=== PATIENT | female | born 1990 | race Caucasian/White ===

== ENCOUNTER 2019-12-08 18:09 | Emergency (ER) | payer BC, SELFPAY ==
[2019-12-08 18:16] VITALS: BP 128/78; RESP 18; TEMP 37.1; O2SAT 98; BMI 26.0
[2019-12-08 20:14] VITALS: BP 120/81; PULSE 84; RESP 16; O2SAT 98
[2019-12-08 20:54] LABS: HCG Qualitative Urine. Positive (Negative)
[2019-12-08 21:13] LABS: Basophils # 0.1 10^3/uL (0.0-0.1); Basophils % 0.4 %; Eosinophils # 0.1 10^3/uL (0.0-0.8); Eosinophils % 0.5 %; Hematocrit 44.8 % (37.0-47.0); Hemoglobin 14.8 g/dL (11.5-15.3); Lymphocytes # 2.7 10^3/uL (0.8-4.8); Lymphocytes % 15.9 %; Mean Corpuscular Hemoglobin 29.2 pg (28.0-34.0); Mean Corpuscular Volume 88.4 fL (81-99); Mean Platelet Volume 12.1 fL (7.4-10.4); Monocytes # 0.6 10^3/uL (0.2-0.9); Monocytes % 3.7 %; Neutrophils # 13.6 10^3/uL (1.8-7.7); Neutrophils % 79.2 %; Nucleated Red Blood Cells % 0 %; Platelet Count 238 10^3/cmm (130-400); Red Blood Count 5.07 10^6/uL (4.1-5.3); White Blood Count 17.2 10^3/uL (4.0-10.0)
[2019-12-08 21:32] LABS: Alanine Aminotransferase 24 U/L (0-33); Albumin Level 4.3 g/dL (3.5-5.2); Alkaline Phosphatase 71 IU/L (35-105); Anion Gap 16.7 (5-19); Aspartate Amino Transferase 16 U/L (0-32); Blood Urea Nitrogen 5 mg/dL (6-20); Calcium 9.3 mg/dL (8.5-10.5); Carbon Dioxide 23 mmol/L (22-29); Chloride 101 mmol/L (98-107); Globulin 2.9 g/dL (1.3-4.6); Glucose 77 mg/dL (65-115); Osmolality Calculated 279 mOsm/kg (285-295); Potassium 3.7 mmol/L (3.5-5.1); Sodium 137 mmol/L (136-145); Total Bilirubin 0.9 mg/dL (0.15-1.2); Total Protein 7.2 g/dL (6.6-8.7)
[2019-12-08 21:39] LABS: Bilirubin Urine Neg (NEGATIVE); Blood Urine 2+ (Negative); Glucose Urine UA Norm (Normal); Ketones Urine Negative (Negative); Nitrate Urine Negative (Negative); Protein Urine Neg (Negative); Urine Appearance SL Hazy (CLEAR); Urine Color Yellow (Yellow); Urobilinogen Urine Norm (Negative); pH Urine 6 (5-7)
[2019-12-08 21:40] LABS: Add Urine Culture? Yes; Add Urine Microscopic? YES; Bacteria Urine TRACE; Leukocyte Esterase Urine Trace (Negative); Squamous Epithelial Cell Urine 0-4 (0-5); Transitional Epi Cells Urine RARE /hpf; WBC Urine 25-40 /hpf (0-5)
--- NOTE | 2019-12-08 21:51 | US_ITS ---
WS: [id number] TRANSABDOMINAL FIRST TRIMESTER ULTRASOUND HISTORY: bleeding, hx of ectopic : 3 PARA: 1 COMPARISON: None available. FINDINGS: Cervical length was not calculated. Single live intrauterine . [place] rump length measuring 1.6 cm. . Gestational sac measures 8w0d cm. cardiac tones 176 BPM. Estimated date of delivery 07/19/2020. Small subchorionic hemorrhage is seen surrounding the gestational sac. Right ovary measures 2.59 cm x 2.11 cm x 2.52 cm. Left ovary measures 3.52 cm x 2.69 cm . US/US OB <= 14 weeks fetus [id number] IMPRESSION: Interuterine at 8 weeks gestation Small area of subcutaneous chorionic hemorrhage. The appears to be viable.
--- NOTE | 2019-12-08 22:09 | W.ED.PREGNAN ---
HPI - General: Chief complaint: Vaginal Bleeding Stated complaint: vaginal bleeding/8wks preg Time Seen by Provider: 12/08/19 21:51 History of Present Illness: HPI Narrative: Patient with low back pain central with vaginal bleeding that started early this morning stopped about 1500 today patient says she feels better but still has some pain in her low back has a history ectopic denies any dysuria fever chills nausea or vomiting MD Complaint: vaginal bleeding Onset (ago): hour(s) Pain Consistency: intermittent Location: other (Low back) Severity: mild Quality: Aching Radiation: pelvis Relieving factors: none Exacerbating factors: none Vaginal discharge: none Vaginal bleeding: other (Did have bleeding today that fell about half a pad. Currently 8 weeks ) Patient : Yes Number of Weeks : 8 OB History - Current : no complications OB History - Previous Pregnancies: no complications and other (Ectopic) care: none Associated symptoms: Reports no associated symptoms; Deny abdominal pain, headache(s), nausea or vomiting Related Data: : 3 Review of Systems Const: Denies: fever, chills or body aches Eyes: Denies: change in vision or blurry vision ENMT: Denies: throat pain or nasal congestion Card: Denies: chest pain or shortness of breath on exertion Resp: Denies: shortness of breath, productive cough or non-productive cough GI: Denies: abdominal pain, nausea or vomiting : Reports: vaginal bleeding Musc: Reports: back pain; Denies: extremity pain Skin/Breast: Denies: rash Neuro: Denies: headache Psych: Denies: anxiety or depression Marcelo/Lymph: Denies: easy bruising PFS ED PFSH: Social History Smoking and tobacco status: never smoked Female Reproductive History: : 3 Physical Exam Const: COMMON NORMALS: no apparent distress, average body habitus and oriented x3 HENMT: COMMON NORMALS: normocephalic HEAD & SCALP: normal to inspection and normocephalic FACE & SINUS: normal facial exam Eye: COMMON NORMALS: conjunctivae normal GENERAL EYE: normal appearance of both eyes CONJUNCTIVA: Yes conjunctivae normal Neck/C-Spine: COMMON NORMALS: no JVD Chest: COMMONS NORMALS: inspection of chest normal Resp: COMMON NORMALS: normal respiratory effort and clear to auscultation bilaterally AUSCULTATION: clear to auscultation bilaterally Cardio: COMMON NORMALS: no JVD, regular rate and regular rhythm RATE: regular rate RHYTHM: regular rhythm GI: COMMON NORMALS: normal to inspection, nondistended, normoactive bowel sounds PALPATION: Yes tender (Suprapubic area) : COMMON NORMALS: Yes no CVA tenderness BLADDER/KIDNEY EXAM: Yes no CVA tenderness Back/Pelvis: COMMON NORMALS: no CVA tenderness Extremity: COMMON NORMALS: normal to inspection and full ROM Neuro: COMMON NORMALS: oriented x3 Procedures Perimortem Number of Weeks : 8 Course Vital Signs: Vital signs: Vital Signs Temperature 98.7 F 12/08/19 18:16 Pulse Rate 84 12/08/19 20:14 Respiratory Rate 16 12/08/19 20:14 Blood Pressure 120/81 12/08/19 20:14 Pulse Oximetry 98 12/08/19 20:14 MDM - OB/Uterine Contractions MDM Narrative: Medical decision making narrative: Ultrasound shows viable baby with heartbeat in place with a sub chorionic bleed. No evidence of ectopic no free fluid fluid be appears to be at 8 weeks Lab Data: Labs: Lab Results 12/08/19 12/08/19 12/08/19 Range/Units 19:43 19:43 20:50 WBC 17.2 H (4.0-10.0) 10^3/ uL RBC 5.07 (4.1-5.3) 10^6/u L Hgb 14.8 (11.5-15.3) g/dL Hct 44.8 (37.0-47.0) % MCV 88.4 (81-99) fL MCH 29.2 (28.0-34.0) pg MCHC 33.0 (30.0-36.0) g/dL RDW 14.0 (12.1-15.1) % Plt Count 238 (130-400) 10^3/c mm MPV 12.1 H (7.4-10.4) fL Neut % (Auto) 79.2 % Lymph % (Auto) 15.9 % [place] % (Auto) 3.7 % Eos % (Auto) 0.5 % Baso % (Auto) 0.4 % Neut # (Auto) 13.6 H (1.8-7.7) 10^3/u L Lymph # (Auto) 2.7 (0.8-4.8) 10^3/u L [place] # (Auto) 0.6 (0.2-0.9) 10^3/u L Eos # (Auto) 0.1 (0.0-0.8) 10^3/u L Baso # (Auto) 0.1 (0.0-0.1) 10^3/u L Nucleated RBC % (a uto) 0 % Nucleated RBCs # 0.0 /100WBC Sodium (136-145) mmol/L Potassium (3.5-5.1) mmol/L Chloride (98-107) mmol/L Carbon Dioxide (22-29) mmol/L Anion Gap (5-19) BUN (6-20) mg/dL Creatinine (0.5-0.9) mg/dL GFR Calculation (90-130) mL/min Glucose (65-115) mg/dL Calculated Osmolal ity (285-295) mOsm/k g Calcium (8.5-10.5) mg/dL Total Bilirubin (0.15-1.2) mg/dL AST (0-32) U/L ALT (0-33) U/L Alkaline Phosphata se (35-105) IU/L Total Protein (6.6-8.7) g/dL Albumin (3.5-5.2) g/dL Globulin (1.3-4.6) g/dL HCG, Qual Positive H (Negative) Urine Color Yellow (Yellow) Urine Appearance Sl hazy (CLEAR) Urine pH 6 (5-7) Ur Specific Gravit y 1.010 (1.005-1.030) Urine Protein Neg (Negative) Urine Glucose (UA) Norm (Normal) Urine Ketones Negative (Negative) Urine Blood 2+ H (Negative) Urine Nitrate Negative (Negative) Urine Bilirubin Neg (NEGATIVE) Urine Urobilinogen Norm (Negative) mg/dL Ur Leukocyte Katiha ase Trace H (Negative) Urine RBC 5-10 H (0-2) /hpf Urine WBC 25-40 H (0-5) /hpf Ur Squamous Epith Cells 0-4 H (0-5) Ur Transition Epit h Cell Rare /hpf Urine Bacteria Trace (NONE) 03/16/20 Range/Units 20:50 WBC (4.0-10.0) 10^3/ uL RBC (4.1-5.3) 10^6/u L Hgb (11.5-15.3) g/dL Hct (37.0-47.0) % MCV (81-99) fL MCH (28.0-34.0) pg MCHC (30.0-36.0) g/dL RDW (12.1-15.1) % Plt Count (130-400) 10^3/c mm MPV (7.4-10.4) fL Neut % (Auto) % Lymph % (Auto) % [place] % (Auto) % Eos % (Auto) % Baso % (Auto) % Neut # (Auto) (1.8-7.7) 10^3/u L Lymph # (Auto) (0.8-4.8) 10^3/u L [place] # (Auto) (0.2-0.9) 10^3/u L Eos # (Auto) (0.0-0.8) 10^3/u L Baso # (Auto) (0.0-0.1) 10^3/u L Nucleated RBC % (a uto) % Nucleated RBCs # /100WBC Sodium 137 (136-145) mmol/L Potassium 3.7 (3.5-5.1) mmol/L Chloride 101 (98-107) mmol/L Carbon Dioxide 23 (22-29) mmol/L Anion Gap 16.7 (5-19) BUN 5 L (6-20) mg/dL Creatinine 0.5 (0.5-0.9) mg/dL GFR Calculation 148.0 H (90-130) mL/min Glucose 77 (65-115) mg/dL Calculated Osmolal ity 279 L (285-295) mOsm/k g Calcium 9.3 (8.5-10.5) mg/dL Total Bilirubin 0.9 (0.15-1.2) mg/dL AST 16 (0-32) U/L ALT 24 (0-33) U/L Alkaline Phosphata se 71 (35-105) IU/L Total Protein 7.2 (6.6-8.7) g/dL Albumin 4.3 (3.5-5.2) g/dL Globulin 2.9 (1.3-4.6) g/dL HCG, Qual (Negative) Urine Color (Yellow) Urine Appearance (CLEAR) Urine pH (5-7) Ur Specific Gravit y (1.005-1.030) Urine Protein (Negative) Urine Glucose (UA) (Normal) Urine Ketones (Negative) Urine Blood (Negative) Urine Nitrate (Negative) Urine Bilirubin (NEGATIVE) Urine Urobilinogen (Negative) mg/dL Ur Leukocyte Kathia ase (Negative) Urine RBC (0-2) /hpf Urine WBC (0-5) /hpf Ur Squamous Epith Cells (0-5) Ur Transition Epit h Cell /hpf Urine Bacteria (NONE) Discharge Plan Discharge Patient Disposition: Home, Self-Care Clinical Impression: UTI (urinary tract infection) Qualifiers: Urinary tract infection type: acute cystitis Hematuria presence: with hematuria Qualified Code(s): N30.01 - Acute cystitis with hematuria Condition: Stable Prescriptions: New amoxicillin 500 mg capsule 500 mg PO TID 7 Days Qty: 21 RF: 0 prenat.vits,dilma,[id number] Tablet 1 tab PO DAILY Qty: 90 RF: 2 Discharge Orders: Discharge Order (Routine); Ordered 12/08/19 Ordered By: Tian Logan Discharge Diet: Advance as tolerated Discharge Activity: Increase activity as tolerated Patient Instructions: Urinary Tract Infection in Women (ED) Activity Restrictions/Additional Instructions: Follow-up with medical provider as directed. Take medications as prescribed. Return to the ER or your medical provider if condition worsens. Please read and understand discharge instructions. If any questions ask please. No lifting over 10 pounds to . Tablets with an OB soon. 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
[2019-12-08] MEDS: amoxicillin 500 mg Capsule PO (22:46)
[2019-12-08 22:50] VITALS: BP 128/64; PULSE 78; RESP 18; O2SAT 99
== END 2019-12-08 22:52 | disposition home or self-care (01) ==
PROVIDERS: Family Medicine; Emergency Provider Nurse Practitioner Family
DX: O23.41 Unspecified infection of urinary tract in pregnancy, first trimester (principal); O20.8 Other hemorrhage in early pregnancy; Z3A.08 8 weeks gestation of pregnancy
CPT/HCPCS: 12345; 36415; 76801; 80053; 81001; 81025; 84702; 85025; 86900; 87086; 99281; 99283; A9270

== ENCOUNTER → 2019-12-16 09:35 | Outpatient (BNVA) | payer SELFPAY | PROVIDERS: Visit Provider Nurse Practitioner Women's Health | DX: Z01.89 Encounter for other specified special examinations (principal) | CPT/HCPCS: 84315 ==

== ENCOUNTER → 2020-01-07 11:05 | Outpatient (BNVA) | payer BC, SELFPAY | PROVIDERS: Visit Provider Obstetrics & Gynecology | DX: O09.892 Supervision of other high risk pregnancies, second trimester (principal); Z34.90 Encounter for supervision of normal pregnancy, unspecified, unspecified trimester; O99.340 Other mental disorders complicating pregnancy, unspecified trimester; O09.291 Supervision of pregnancy with other poor reproductive or obstetric history, first trimester; O41.8X10 Other specified disorders of amniotic fluid and membranes, first trimester, not applicable or unspecified; O46.8X1 Other antepartum hemorrhage, first trimester; F41.9 Anxiety disorder, unspecified; F32.9 Major depressive disorder, single episode, unspecified | CPT/HCPCS: 80307; 84315; 85027; 86592; 86762; 86803; 86850; 87340; 87491; 87591; 87661; 87806 ==

== ENCOUNTER → 2020-01-12 09:20 | Outpatient (BNVA) | payer BC, SELFPAY | PROVIDERS: Visit Provider Obstetrics & Gynecology | DX: O09.291 Supervision of pregnancy with other poor reproductive or obstetric history, first trimester (principal); Z21 Asymptomatic human immunodeficiency virus [HIV] infection status | CPT/HCPCS: 84315 ==

== ENCOUNTER → 2020-01-19 09:12 | Outpatient (BNVA) | payer BC, SELFPAY | PROVIDERS: Visit Provider Obstetrics & Gynecology | DX: O09.291 Supervision of pregnancy with other poor reproductive or obstetric history, first trimester (principal); Z34.90 Encounter for supervision of normal pregnancy, unspecified, unspecified trimester; Z21 Asymptomatic human immunodeficiency virus [HIV] infection status; F41.9 Anxiety disorder, unspecified; F32.9 Major depressive disorder, single episode, unspecified; A59.01 Trichomonal vulvovaginitis | CPT/HCPCS: 84156 ==

== ENCOUNTER → 2020-03-09 08:45 | Outpatient (BNVA) | payer BC, SELFPAY | PROVIDERS: Visit Provider Obstetrics & Gynecology | DX: Z34.80 Encounter for supervision of other normal pregnancy, unspecified trimester (principal) | CPT/HCPCS: 84315; 87661 ==

== ENCOUNTER → 2020-05-03 09:16 | Outpatient (BNVA) | payer BC, SELFPAY | PROVIDERS: Visit Provider Obstetrics & Gynecology | DX: O26.899 Other specified pregnancy related conditions, unspecified trimester (principal); Z21 Asymptomatic human immunodeficiency virus [HIV] infection status; A59.01 Trichomonal vulvovaginitis; F41.9 Anxiety disorder, unspecified; F32.9 Major depressive disorder, single episode, unspecified; Z3A.00 Weeks of gestation of pregnancy not specified | CPT/HCPCS: 80053; 82570; 82950; 84156; 84315; 84550; 85027 ==

== ENCOUNTER → 2020-05-25 11:09 | Outpatient (BNVA) | payer BC, SELFPAY | PROVIDERS: Visit Provider Obstetrics & Gynecology | DX: O23.90 Unspecified genitourinary tract infection in pregnancy, unspecified trimester (principal); A59.01 Trichomonal vulvovaginitis; Z3A.00 Weeks of gestation of pregnancy not specified | CPT/HCPCS: 84315; 87661 ==

== ENCOUNTER → 2020-06-15 08:02 | Outpatient (BNVA) | payer BC, SELFPAY | PROVIDERS: Visit Provider Obstetrics & Gynecology | DX: Z34.90 Encounter for supervision of normal pregnancy, unspecified, unspecified trimester (principal) | CPT/HCPCS: 84315; 87081 ==

== ENCOUNTER → 2020-06-22 13:12 | Outpatient (BNVA) | payer BC, SELFPAY | PROVIDERS: Visit Provider Obstetrics & Gynecology | DX: O36.60X0 Maternal care for excessive fetal growth, unspecified trimester, not applicable or unspecified (principal); O13.3 Gestational [pregnancy-induced] hypertension without significant proteinuria, third trimester; A59.01 Trichomonal vulvovaginitis; Z3A.30 30 weeks gestation of pregnancy | CPT/HCPCS: 84315; 87635; 87661 ==

== ENCOUNTER 2020-06-29 07:02 | Inpatient (IN) | payer BC, SELFPAY ==
[2020-06-29] VITALS (96 sets, daily range): BP systolic 0–161; BP diastolic 0–86; PULSE 93–138; RESP 16–20; TEMP 36.2–37.2; O2SAT 97–99; BMI 37.0
[2020-06-29 07:52] LABS: Add Urine Microscopic? NO
[2020-06-29 08:01] LABS: Basophils # 0.1 10^3/uL (0.0-0.1); Basophils % 0.4 %; Eosinophils # 0.1 10^3/uL (0.0-0.8); Eosinophils % 0.6 %; Hematocrit 37.9 % (37.0-47.0); Hemoglobin 12.2 g/dL (11.5-15.3); Lymphocytes # 1.3 10^3/uL (0.8-4.8); Lymphocytes % 8.8 %; Mean Corpuscular HGB Conc 32.2 g/dL (30.0-36.0); Mean Corpuscular Hemoglobin 28.6 pg (28.0-34.0); Mean Corpuscular Volume 88.8 fL (81-99); Mean Platelet Volume 13.2 fL (7.4-10.4); Monocytes # 0.7 10^3/uL (0.2-0.9); Monocytes % 5.1 %; Neutrophils # 12.04 10^3/uL (1.8-7.7); Neutrophils % 84.7 %; Nucleated Red Blood Cells % 0 %; Platelet Count 150 10^3/cmm (130-400); Red Blood Count 4.27 10^6/uL (4.1-5.3); White Blood Count 14.2 10^3/uL (4.0-10.0)
[2020-06-29 08:09] LABS: Bilirubin Urine Neg (Negative); Blood Urine Neg (Negative); Glucose Urine UA Norm (Normal); Ketones Urine Negative (Negative); Leukocyte Esterase Urine Negative (Negative); Nitrate Urine Negative (Negative); Protein Urine Neg (Negative); Urine Appearance Clear (CLEAR); Urine Color Straw (Yellow); Urobilinogen Urine Norm (Negative)
[2020-06-29] MEDS: oxytocin 30 UNIT/500 ML BAG IV (08:18)
[2020-06-29 08:19] LABS: Alanine Aminotransferase 7 U/L (0-33); Albumin Level 3.4 g/dL (3.5-5.2); Alkaline Phosphatase 165 IU/L (35-105); Anion Gap 16.8 (5-19); Aspartate Amino Transferase 21 U/L (0-32); Blood Urea Nitrogen 5 mg/dL (6-20); Calcium 8.5 mg/dL (8.5-10.5); Carbon Dioxide 17 mmol/L (22-29); Chloride 104 mmol/L (98-107); Globulin 2.7 g/dL (1.3-4.6); Glomerular Filtration Rate 191.5 mL/min (90-130); Glucose 135 mg/dL (65-115); Osmolality Calculated 277 mOsm/kg (285-295); Potassium 3.8 mmol/L (3.5-5.1); Sodium 134 mmol/L (136-145); Total Bilirubin 0.8 mg/dL (0.15-1.2); Total Protein 6.1 g/dL (6.6-8.7); Uric Acid 4.5 mg/dL (2.4-5.7)
[2020-06-29] MEDS: dextrose 5%-lactated ringers 1,000 ML 125 ML IV (08:19)
[2020-06-29 08:20] LABS: Urine Creatinine 29 mg/dL (28-217); Urine Protein Random 10 mg/dL
[2020-06-29 08:29] LABS: UPRO/UCREAT Ratio 0.34 mg/mg CR
[2020-06-29] MEDS: magnesium sulfate premix 4 GM/100 ML PREMIX IV (10:45)
[2020-06-29] MEDS: magnesium sulfate premix 20 GM/500 ML BAG IV ×2 (11:00→19:56)
[2020-06-29] MEDS: dextrose 5%-lactated ringers 1,000 ML 59 ML IV (16:16)
--- NOTE | 2020-06-29 17:00 | ANES.PREANE2 ---
Pre-Anesthetic Assessment Pre-Anesthetic Assessment: Height/Weight: Height 1.65 m Weight 100.698 kg Temp Pulse Resp BP 97.8 F 105 H 18 144/79 06/29/20 13:00 06/29/20 16:50 06/29/20 10:45 06/29/20 16:50 Preop Diagnosis: labor Proposed Procedure: epidural Was Beta Barry taken within 24 hours: N/A Last Intake: 06:00 Social: Social History: No alcohol and No tobacco Exam: Pre-Anes Outpt Exam: alert, oriented x 3, clear to auscultation bilaterally and regular rate & rhythm Airway: Submandibular: WNL Cervical ROM: WNL MP: 2 Dentition: Full Pulmonary: Pulmonary: None reported CV/HEM: CV/HEM: HTN (with ) : : None reported Hepatic: Hepatic: None reported GI: GI: None reported Metabolic: Metabolic: None reported Musc/skel: Musc/skel: None reported Neuropsych: Neuropsych: None reported Anesthetic Plan: ASA status: 2 Anesthesia: Eval. for regional block and Regional (specify below) (epidural) Risk of > 500 ml blood loss (7ml/kg in children): No Meds/Allergies Current Medications: Current Medications Generic Name Dose Route Start Last Admin Trade Name Freq PRN Reason Stop Dose Admin Dextrose/Lactated Ringer's 1,000 mls @ 125 m ls/hr 06/29/20 07:45 06/29/20 16:16 Dextrose 5%-Lact ated Ringers IV 59 mls/hr .Q8H SALAS Administration Oxytocin 30 unit in 500 ml s @ 1 mls/hr 06/29/20 08:15 06/29/20 15:00 Pitocin IV 16 milliunit/min .Q24H SALAS 16 mls/hr Titration Protocol 1 MILLIUNIT/MIN Magnesium Sulfate 20 gm in 500 mls @ 50 mls/hr 06/29/20 10:30 06/29/20 11:00 Magnesium Sulfat e Premix IV 50 mls/hr .Q10H SALAS Administration PFSH Anesthesia PFSH: Medical History History of ectopic (~2018) Treated with methotrexate No pertinent past medical history Denies history of: hypercholesterolemia, liver, lung, kidney, thyroid problems, bleeding or clotting disorders, DVT/PE, genital herpes. PCP: None Surgical History No pertinent past surgical history Family History Grandmother Diabetes Paternal grandmother Family/Other Ovarian cancer Paternal aunt Uterine cancer Paternal aunt Mother Stroke Hypertension Family history of thyroid problem Father Heart disease Denies family history of Colon cancer Hyperlipidemia Breast cancer Social History Smoking and tobacco status: former smoker Alcohol intake: never Other details last substance use: Denies drug use Additional social history: - - Female Reproductive History: : 3 Data Anesthesia CBC & Chem 7: 06/29/20 07:25 06/29/20 07:25 Other Labs: Laboratory Results - last 48 hr 06/29/20 06/29/20 06/29/20 07:05 07:25 07:25 WBC 14.2 H RBC 4.27 Hgb 12.2 Hct 37.9 MCV 88.8 MCH 28.6 MCHC 32.2 RDW 14.0 Plt Count 150 MPV 13.2 H Neut % (Auto) 84.7 Lymph % (Auto) 8.8 [place] % (Auto) 5.1 Eos % (Auto) 0.6 Baso % (Auto) 0.4 Neut # (Auto) 12.04 H Lymph # (Auto) 1.3 [place] # (Auto) 0.7 Eos # (Auto) 0.1 Baso # (Auto) 0.1 Nucleated RBC % (auto) 0 Nucleated RBCs # 0.0 Sodium 134 L Potassium 3.8 Chloride 104 Carbon Dioxide 17 L Anion Gap 16.8 BUN 5 L Creatinine 0.4 L GFR Calculation 191.5 H Glucose 135 H Calculated Osmolality 277 L Uric Acid 4.5 Calcium 8.5 Total Bilirubin 0.8 AST 21 ALT 7 Alkaline Phosphatase 165 H Total Protein 6.1 L Albumin 3.4 L Globulin 2.7 Urine Color Straw Urine Appearance Clear Urine pH 6.0 Ur Specific [place] 1.010 Urine Protein Neg Urine Glucose (UA) Norm Urine Ketones Negative Urine Blood Neg Urine Nitrate Negative Urine Bilirubin Neg Urine Urobilinogen Norm Ur Leukocyte Esterase Negative U Random Total Protein Urine Creatinine Protein/Creatinin Ratio 06/29/20 07:25 WBC RBC Hgb Hct MCV MCH MCHC RDW Plt Count MPV Neut % (Auto) Lymph % (Auto) [place] % (Auto) Eos % (Auto) Baso % (Auto) Neut # (Auto) Lymph # (Auto) [place] # (Auto) Eos # (Auto) Baso # (Auto) Nucleated RBC % (auto) Nucleated RBCs # Sodium Potassium Chloride Carbon Dioxide Anion Gap BUN Creatinine GFR Calculation Glucose Calculated Osmolality Uric Acid Calcium Total Bilirubin AST ALT Alkaline Phosphatase Total Protein Albumin Globulin Urine Color Urine Appearance Urine pH Ur Specific [place] Urine Protein Urine Glucose (UA) Urine Ketones Urine Blood Urine Nitrate Urine Bilirubin Urine Urobilinogen Ur Leukocyte Esterase U Random Total Protein 10 Urine Creatinine 29 Protein/Creatinin Ratio 0.34 Cardiac Studies: No Data to Display
--- NOTE | 2020-06-29 17:29 | ANES.PROC ---
Anesthesia Procedures Procedure/Date: 06/29/20 Epidural: Time Out Performed: Yes Consents Signed: Procedure Consent and NPO Consent Consent: requested by attending/covering physician and from patient Lumbar Level: L3-L4 Epidural position: sitting Epidural procedure: sterile prep of area (betadine), 1% lidocaine to numb the area (3ml), 18 g needle, neg for paresthesia, test dose given, 1.5% xylocaine 1:200k epi (3ml), 0.2% Ropivacaine bolus ml (5ml), placed PCEA, no systemic response, sterile dressing applied, L.U.D. no apparent complications and 0.2% Ropiavacaine @ mls/hr (10ml/hr)
--- NOTE | 2020-06-29 17:45 | PC.NURSE ---
THIS [employer]ANQUET SERVER ON CALL ATTEMPTED TO DRAW MAG LEVEL PER VENOUS TICK LEFT AC SPACE WITHOUT SUCCESS AT 1630 CALLED LAB AND THEY CAME U WHEN PT SITTING UP FOR EPIDURAL SO THIS [employer] SERVER ON CALL CALLED THEM BACK AT 1725 AND AT 1740 THEY CAME UP AND DRAW HER BLOOD. DR. HOSKINS AWARE OF LATE BLOOD DRAW.
[2020-06-29 18:12] LABS: Magnesium Level (OB Only) 3.9 mg/dL (5.0-7.5)
[2020-06-29] MEDS: miSOPROStol 200 mcg Tablet 800 MCG PR (21:16)
[2020-06-29] MEDS: dextrose 5%-lactated ringers 1,000 ML 87 ML IV (21:45)
--- NOTE | 2020-06-29 21:46 | P.PCNOB_ITS ---
Delivery Note: Date of delivery: June 29, 2020 Pre-delivery diagnoses: 1. Preeclampsia in third trimester 2. at 37-0/7 weeks gestation 3. Mental disorder (depression) complicating in third trimester Post-delivery diagnoses: 1. Preeclampsia - delivered 2. at 37-0/7 weeks gestation 3. Mental disorder (depression) complicating - delivered 4. Viable male . Procedure: Spontaneous vaginal delivery Op report anesthesia: Epidural Delivering Physician: Boogie Barker MD Estimated blood loss (mL): 400 Pre-Delivery Course: Patient is a 29-year-old female 3, para 1-0-1-1 with an LMP of 10/14/2019 and an EDC of 07/20/2020 based on LMP and consistent with 8-week ultrasound, which placed her at 37-0/7 weeks gestation at the time of admission. At her last visit in the office on 06/28/2020, patient had been noted is having mildly elevated blood pressures at home and at the office and was diagnosed with gestational hypertension. As a result, she was scheduled to be induced at 37 weeks gestation. She presented to labor and delivery at 06:55 on 06/29/2020 for induction of labor. She was evaluated that morning and ruled in for preeclampsia with mildly elevated blood pressures and a protein creatinine ratio of 0.34. She was started on magnesium sulfate for seizure prophylaxis. She was noted to have a favorable cervix and was started on Pitocin for induction of labor. She became more uncomfortable during the day and had epidural placed. She made slow change during the day and at 14:30, she had artificial rupture membranes performed with clear fluid present. She was still 60% effaced and was 6 cm dilated. She continued to make very slow cervical change and at 19:37 was still 7 cm dilated. Following this, however, she started progressing quickly and was found to be completely dilated at 20:53. Delivery: She started pushing at 21:03 and delivered at 21:08 as a spontaneous vaginal delivery of an occiput anterior male infant over an intact perineum under epidural anesthesia. Following delivery of the baby's head, no nuchal cords were noted. Rest of the delivered atraumatically with the left shoulder anterior. Baby was then placed on the mother's abdomen where it was left in the care of the waiting nurses. It was spontaneously crying. Cord was clamped and was then cut by the reported father of the baby. Cord blood was obtained. Pitocin bolus was started. Placenta delivered intact by simple expression at 21:14. The cervix and vagina were palpated and noted to be intact. The labia and perineum were inspected and noted to be intact except for superficial bilateral periurethral lacerations which required no repair and a second-degree midline perineal laceration which was repaired with 3-0 Vicryl suture. Due to being on Pitocin for greater than 12 hours and with her being on magnesium and being continued on magnesium afterwards, decision was made to give 800 mcg of Cytotec rectally for bleeding prophylaxis. FINDINGS: 1. Viable male weighing 8 lbs 2 oz (3610 g) with a length of 21 inches and Apgars of 9 at 1 minute and 9 at 5 minutes. 2. Three-vessel cord with no loops of nuchal cord noted. 3. Normal-appearing placenta with an eccentric cord insertion. Post-Delivery Status: Mother and were left to recover in satisfactory condition. Patient will be continued on magnesium sulfate for seizure prophylaxis for at least 24 hours . 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
[2020-06-29 23:10] LABS: Magnesium Level (OB Only) 4.3 mg/dL (5.0-7.5)
[2020-06-30] VITALS (27 sets, daily range): BP systolic 130–159; BP diastolic 65–91; PULSE 81–117; RESP 16–18; TEMP 36.5–37.1; O2SAT 95–99
--- NOTE | 2020-06-30 02:45 | ANE.PACU2 ---
Inpatient post-anesthesia follow up: Airway intact: Yes Vital signs: Temperature 98.7 F Pulse Rate 111 Respiratory Rate 17 Blood Pressure 144/86 Pulse Oximetry 99 Oxygen Delivery Me thod Room Air Oxygen Flow Rate Fraction of Inspir ed Oxygen Hydration adequate: Yes Nausea and vomiting: No Pain level: 1 Mental status: Baseline Additional Comments: no signs of infection at epidural site, no headaches, no weakness/numbness in legs.Gonsales still in place, not up and walking yet
--- NOTE | 2020-06-30 03:18 | PC.NURSE ---
PT TRANSFERRED VIA BED TO ROOM AT 0230.
[2020-06-30] MEDS: magnesium sulfate premix 20 GM/500 ML BAG IV ×2 (05:13→13:04)
[2020-06-30 05:50] LABS: Magnesium Level (OB Only) 4.6 mg/dL (5.0-7.5)
--- NOTE | 2020-06-30 07:48 | PM.PN ---
Subjective Subjective: Interval history: Patient reports being tired. States did not sleep well last night. She denied shortness of breath or chest pains. She denied lightheadedness or dizziness with laying in bed. She states pain has been well controlled. Vitals/I&O/Wt Last Vital Signs Temp 98.7 F 06/30/20 05:30 Pulse 111 H 06/30/20 05:30 Resp 17 06/30/20 05:30 BP 144/86 06/30/20 05:30 Pulse Ox 99 06/30/20 05:30 06/29/20 06/30/20 06/30/20 22:59 06:59 14:59 Intake Total 2237.300 / 2645.200 1036.501 / 3681.701 Output Total 1127 / 1927 3135 / 5062 500 / 500 Balance 1110.300 / 718.200 -2098.499 / -1380.299 -500 / -500 Weight last 48 hrs Weight 222 lb Weight 222 lb 7.831 oz Physical Exam Const: COMMON NORMALS: no acute distress, average body habitus, alert and well nourished GENERAL APPEARANCE: well developed ORIENTATION/CONSCIOUSNESS: Yes oriented to person, Yes oriented to place and Yes oriented to time Resp: COMMON NORMALS: normal respiratory effort and clear to auscultation bilaterally AUSCULTATION: clear to auscultation bilaterally Cardio: COMMON NORMALS: regular rate, regular rhythm, No gallops present (Cardio) and No rub (Cardio) RATE: regular rate RHYTHM: regular rhythm GI: COMMON NORMALS: Soft to palpation, non-tender, No hepatosplenomegaly present and no masses (Except for , nontender uterus.) AUSCULTATION: Yes normoactive bowel sounds PALPATION: Yes Soft to palpation, Yes No hepatosplenomegaly present and No Hernia present : EXTERNAL FEMALE EXAM: No Hernia present Neuro: SENSORIUM/ORIENTATION: Yes alert, Yes oriented to person, Yes oriented to place and Yes oriented to time Psych: COMMON NORMALS: normal affect MOOD & AFFECT: Yes euthymic mood Urinary Catheter Management^: Gonsales: Cath Placed During This Visit: yes, but has since been removed by the nurse Reason for Continuing Indwelling Catheter: Accurate Measurement of Urinary Output in Critically Ill Patients Urinary Catheter Date of Insertion: 06/29/20 Urinary Catheter Time of Insertion: 21:54 Date Urinary Catheter Removed: 06/29/20 Time Urinary Catheter Discontinued: 21:02 Gonsales Latex Free: Cath Placed During This Visit: no Reason for Continuing Indwelling Catheter: Accurate Measurement of Urinary Output in Critically Ill Patients Data : 06/29/20 07:25 06/29/20 07:25 A&P Assessment and plan (1) Pre-eclampsia, mild, delivered: day 1, less than 12 hours since delivery. Patient has had mildly elevated blood pressures, none of them in the severe range. Blood pressure medications have not been needed at this time. Patient has already been diuresing with 200 mL or more urine output every hour. Assuming patient continues to diurese well, plan will be to discontinue magnesium at 24 hours postdelivery. Gonsales catheter will be discontinued after that and activities increased. We will keep her n.p.o. except for ice chips and sips until magnesium has been discontinued. Status: Acute Attestations Medical Necessity Statement*: Patient with preeclampsia on IV magnesium and will be on it for at least 24 hours postdelivery. 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
--- NOTE | 2020-06-30 08:59 | PC.NURSE ---
Patient's notified of visitor policy, that if he leaves at this time he will be unable to come back. , Jose G, stated understanding that he would not be allowed back in the unit if he left.
[2020-06-30] MEDS: sertraline 50 mg Tablet PO (09:08)
[2020-06-30 11:15] LABS: Hematocrit 38.3 % (37.0-47.0); Hemoglobin 12.3 g/dL (11.5-15.3); Mean Corpuscular HGB Conc 32.1 g/dL (30.0-36.0); Mean Corpuscular Hemoglobin 28.7 pg (28.0-34.0); Mean Corpuscular Volume 89.5 fL (81-99); Mean Platelet Volume 12.8 fL (7.4-10.4); Platelet Count 154 10^3/cmm (130-400); Red Blood Count 4.28 10^6/uL (4.1-5.3); Red Cell Distribution Width 14.2 % (12.1-15.1); White Blood Count 15.8 10^3/uL (4.0-10.0)
[2020-06-30 11:57] LABS: Magnesium Level (OB Only) 5.5 mg/dL (5.0-7.5)
[2020-06-30] MEDS: dextrose 5%-lactated ringers 1,000 ML 62.5 ML IV (12:29)
[2020-06-30 17:47] LABS: Magnesium Level (OB Only) 5.9 mg/dL (5.0-7.5)
[2020-07-01] VITALS (8 sets, daily range): BP systolic 139–167; BP diastolic 79–97; PULSE 70–88; RESP 16–18; TEMP 36.6–36.9; O2SAT 95–97
--- NOTE | 2020-07-01 07:18 | ANE.PACU2 ---
Inpatient post-anesthesia follow up: Airway intact: Yes Vital signs: Temperature 98.3 F Pulse Rate 74 Respiratory Rate 17 Blood Pressure 139/87 Pulse Oximetry 97 Oxygen Delivery Me thod Room Air Oxygen Flow Rate Fraction of Inspir ed Oxygen Hydration adequate: Yes Nausea and vomiting: No Pain level: 2 Mental status: Baseline Additional Comments: Gonsales still in place and not up and walking yet d/t magnesium. No subjective weakness/numbness in Lower extremities. Patient will be up and walking today.
[2020-07-01] MEDS: ibuprofen 800 mg tablet PO ×2 (09:53→14:07)
[2020-07-01] MEDS: sertraline 50 mg Tablet PO (09:53)
[2020-07-01] MEDS: docusate sodium 100 mg Capsule PO (09:53)
--- NOTE | 2020-07-01 17:48 | PM.OBGYDC ---
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 She was admitted to the hospital for induction of labor with gestational hypertension. She was evaluated for possible preeclampsia at admission and ruled in for preeclampsia due to a protein creatinine ratio of 0.34 in addition to the elevated blood pressures. As a result she was started on magnesium sulfate for seizure prophylaxis. She had a favorable cervix and was started on Pitocin for induction. She became uncomfortable enough following this at that she had epidural placed. By 14:30, she had artificial rupture membranes and was noted to be 6 cm dilated and 60% effaced. She made slow cervical change but progressed to complete dilation by 20:53. She started pushing at 21:03 and delivered at 21:08 on 06/29/2020 as a spontaneous vaginal delivery of an occiput anterior male over an intact perineum. Baby weighed 8 pounds 2 ounces (3610 g) with a length of 21 inches and Apgars of 9 at 1 minute and 9 at 5 minutes. She had a second-degree perineal laceration which was repaired with 3-0 Vicryl suture. Patient was bleeding a little heavier than typically seen. Because of the prolonged induction with Pitocin and being on magnesium, she was prophylactically treated with Cytotec 800 mcg rectally. Patient was continued on magnesium following delivery for seizure prophylaxis. Day 1 Patient was reporting doing well overall. She denied shortness of breath or chest pains. She denied lightheadedness or dizziness with laying in bed. She reported that her pain had been well controlled. She did have elevated blood pressures, but not high enough to require medications. She was continued on magnesium sulfate until that evening and magnesium was stopped at the 24-hour post delivery time. She had been diuresing well through the day. Day 2 Patient reports feeling much better today. Reports tolerating a regular diet without nausea or vomiting. Denies lightheadedness or dizziness with sitting up in bed. Denies any shortness of breath or chest pains. Denies headaches. Reports bleeding has slowed. She is requesting to go home today. Physical Exam: See below Plan Discontinue Gonsales catheter. Patient may increase activities. Monitor blood pressure through the day with increased activities. May need to start medications depending upon blood pressure readings. If does well, plan to discharge to home in the evening. Discharge instructions were discussed with the patient in anticipation of being discharged. Blood pressures have been monitored through the day with the increase activity. They are high enough that I would recommend starting medication (labetalol 100 mg twice a day). Patient to follow-up in the office in 1 week for blood pressure check. Information Peripartum Data: Delivery Method: Vaginal Physical Exam Const: COMMON NORMALS: no acute distress, average body habitus, alert and well nourished GENERAL APPEARANCE: well developed ORIENTATION/CONSCIOUSNESS: Yes oriented to person, Yes oriented to place and Yes oriented to time Resp: COMMON NORMALS: normal respiratory effort and clear to auscultation bilaterally AUSCULTATION: clear to auscultation bilaterally Cardio: COMMON NORMALS: regular rate, regular rhythm, No gallops present (Cardio) and No rub (Cardio) RATE: regular rate RHYTHM: regular rhythm GI: COMMON NORMALS: Soft to palpation, non-tender, No hepatosplenomegaly present and no masses (Except for nontender uterus) AUSCULTATION: Yes normoactive bowel sounds PALPATION: Yes Soft to palpation, Yes No hepatosplenomegaly present and No Hernia present : EXTERNAL FEMALE EXAM: No Hernia present Extremity: COMMON NORMALS: no calf tenderness NARRATIVE EXTREMITY EXAM: 1+ lower extremity edema bilaterally Neuro: SENSORIUM/ORIENTATION: Yes alert, Yes oriented to person, Yes oriented to place and Yes oriented to time Psych: COMMON NORMALS: normal affect MOOD & AFFECT: Yes euthymic mood Urinary Catheter Management^: Gonsales: Cath Placed During This Visit: yes, but has since been removed by the nurse Reason for Continuing Indwelling Catheter: Accurate Measurement of Urinary Output in Critically Ill Patients Urinary Catheter Date of Insertion: 06/29/20 Urinary Catheter Time of Insertion: 21:54 Date Urinary Catheter Removed: 06/29/20 Time Urinary Catheter Discontinued: 21:02 Gonsales Latex Free: Cath Placed During This Visit: yes, but has since been removed by the nurse Reason for Continuing Indwelling Catheter: Decision to DC Catheter Date Urinary Catheter Removed: 07/01/20 Time Urinary Catheter Discontinued: 08:04 Discharge Data Vitals: Last Vital Signs Temp 98.4 F 07/01/20 16:46 Pulse 84 07/01/20 16:46 Resp 16 07/01/20 16:46 BP 154/90 07/01/20 16:46 Pulse Ox 97 07/01/20 16:46 Discharge Plan Discharge Patient Disposition: Home Condition: Stable Prescriptions: New ibuprofen 800 mg Tablet 800 mg PO TID PRN (Reason: pain) Qty: 30 RF: 0 labetalol 100 mg tablet 100 mg PO BID 30 Days Qty: 60 RF: 1 Continued aspirin 81 mg tablet,delayed release (DR/EC) 81 mg PO DAILY Qty: 90 RF: 2 sertraline [Zoloft] 50 mg tablet 50 mg PO DAILY Qty: 30 RF: 1 prenat.vits,dilma,afk-[id number] Tablet 1 tab PO DAILY Qty: 90 RF: 2 Discharge Orders: Discharge Order (Routine); Ordered 07/01/20 Ordered By: Boogie Barker Referrals: Lowell Hopkins MD [Physician] - 08/23/20 2:00 pm (* Your follow up appointment with Dr. Ortega is July at 2:00pm. ) Nadege Tian APN, WHNP [Nurse Practitioner] - 1 week (Blood pressure check. 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
== END 2020-07-01 19:40 | disposition home or self-care (01) | DRG 807 ==
PROVIDERS: Obstetrics & Gynecology; Admitting Provider Obstetrics & Gynecology; Visit Provider Obstetrics & Gynecology
DX: O14.04 Mild to moderate pre-eclampsia, complicating childbirth (principal); Z37.0 Single live birth; Z3A.37 37 weeks gestation of pregnancy; O99.344 Other mental disorders complicating childbirth; F32.9 Major depressive disorder, single episode, unspecified; F41.9 Anxiety disorder, unspecified; O13.4 Gestational [pregnancy-induced] hypertension without significant proteinuria, complicating childbirth; O70.1 Second degree perineal laceration during delivery; Z86.19 Personal history of other infectious and parasitic diseases; Z87.891 Personal history of nicotine dependence; Z79.82 Long term (current) use of aspirin
CPT/HCPCS: 12345; 36415; 51702; 59025; 59409; 80053; 81003; 82570; 83735; 84156; 84550; 85025; 85027; 98960; 99211; J2795; J3475

== ENCOUNTER → 2020-08-23 14:42 | Outpatient (BNVA) | payer BC, SELFPAY | PROVIDERS: Visit Provider Obstetrics & Gynecology | DX: Z72.51 High risk heterosexual behavior (principal) | CPT/HCPCS: 81025 ==

== ENCOUNTER → 2020-08-25 08:39 | Outpatient (BNVA) | payer BC, SELFPAY | PROVIDERS: Visit Provider Obstetrics & Gynecology | DX: Z30.9 Encounter for contraceptive management, unspecified (principal) | CPT/HCPCS: 81025 ==

== ENCOUNTER → 2021-11-12 10:13 | Outpatient (BNVA) | payer OTHER, BC, SELFPAY | PROVIDERS: Visit Provider Registered Nurse Neonatal Intensive Care | DX: J02.9 Acute pharyngitis, unspecified (principal) | CPT/HCPCS: 87880 ==

== ENCOUNTER → 2022-10-04 14:33 | Outpatient (BNVA) | payer OTHER, BC, SELFPAY | PROVIDERS: Visit Provider Nurse Practitioner Women's Health | DX: Z01.419 Encounter for gynecological examination (general) (routine) without abnormal findings (principal) | CPT/HCPCS: 87624 ==

== ENCOUNTER 2024-04-24 20:31 | Observation (INO) | payer OTHER, SELFPAY ==
[2024-04-24 20:36] VITALS: BP 149/89; PULSE 115; RESP 20; TEMP 37.1; O2SAT 96; BMI 33.4
[2024-04-24 20:40] VITALS: BP 161/113; PULSE 99; RESP 16; O2SAT 96
--- NOTE | 2024-04-24 22:27 | USR_ITS ---
PROCEDURE INFORMATION: Exam: US , Transvaginal Exam date and time: 04/24/2024 11:02 PM Age: 33 years old Clinical indication: Lmp or gestational age (in weeks): 6w 4d by lmp; Other: Left-sided ectopic; complicated by abdominal or pelvic pain; Left lower quadrant; First trimester (<14 weeks 0 days); Gestational age or lmp: 6w 4 days by lmp; ; Prior surgery; Surgery date: 6+ months; Surgery type: Prior ectopic . Patient HX: Patient is g4-p2-a1-l2 with prior ectopic ; Additional info: Left pelvic pain/hx of ectopic LABS AND CLINICAL REPORTS: Choriogonadotropin in serum (Serum HCG): 2311 mIU/mL Last menstrual period start date: 03/09/2024 Gestational age (Established): 6 w 4 d Estimated due date (Established): 12/14/2024 TECHNIQUE: Imaging protocol: Real-time transvaginal obstetrical ultrasound of the maternal pelvis with image documentation. Transvaginal imaging was used for better evaluation of the fetus, adnexa, and/or cervix. COMPARISON: US OB BPP wo [facility] 06/28/2020 9:49 AM FINDINGS: Gestation: The gestational sac and yolk sac are seen within a lesion in the left adnexa. No pole is seen. BIOMETRY: Mean sac diameter: 0.58 cm. EGA (MSD) is 5 w 2 d MATERNAL: Uterus: Uterus measures 8.94 cm x 5.81 cm x 4.76 cm. Right ovary/adnexa: Right ovary measures 4 cm x 2.7 cm x 4.2 cm. Right ovarian volume is 24 mL. Left ovary/adnexa: Left ovary measures 3 cm x 2.1 cm x 4 cm. Left ovarian volume is 13.5 mL. Intraperitoneal space: Moderate free fluid within the cul-de-sac. US/US OB transvaginal [id number] IMPRESSION: The gestational sac and yolk sac are seen within a lesion in the left adnexa compatible with ectopic . No pole is seen. COMMENT: THIS REPORT CONTAINS FINDINGS THAT MAY BE CRITICAL TO PATIENT CARE. The exam findings were verbally communicated by me to IK MARIANO via telephone conference at 12:07 AM CDT on 04/25/2024. The findings were acknowledged and understood.
[2024-04-24 22:31] LABS: Basophils # 0.1 10^3/uL (0.0-0.1); Basophils % 0.8 %; Eosinophils # 0.2 10^3/uL (0.0-0.8); Hematocrit 46.8 % (36-47); Lymphocytes # 2.3 10^3/uL (0.8-4.8); Lymphocytes % 15.5 %; Mean Corpuscular HGB Conc 32.5 g/dL (30-55); Mean Corpuscular Hemoglobin 29.2 pg (27-33); Mean Platelet Volume 12.7 fL (7.4-10.4); Monocytes # 0.7 10^3/uL (0.2-0.9); Monocytes % 4.5 %; Neutrophils # 11.29 10^3/uL (1.8-7.7); Neutrophils % 77.9 %; Nucleated Red Blood Cells % 0 %; Platelet Count 197 10^3/cmm (157-399); Red Cell Distribution Width 13.8 % (12.1-15.1); White Blood Count 14.49 10^3/uL (3.29-11.43)
[2024-04-24 22:35] VITALS: BP 129/103
[2024-04-24 22:45] VITALS: RESP 16; O2SAT 95
[2024-04-24] MEDS: ondansetron 2 mg/ML SDV 2 mL 4 MG IVP (22:45)
[2024-04-24] MEDS: morphine 4 mg/mL SDV 1 mL IVP (22:45)
[2024-04-24] MEDS: sodium chloride 0.9% 1,000 ML 999 ML IV (22:45)
[2024-04-24 23:29] VITALS: BP 136/115
--- NOTE | 2024-04-24 23:42 | ED_ITS ---
Documented by User: ALEJANDRO Odom 04/25/24 00:54 HPI - 2 General: Chief complaint: OB/Uterine Contractions Stated complaint: 7 weeks preg, cramps Time Seen by Provider: 04/24/24 21:46 Source: patient Mode of arrival: ambulatory Limitations: no limitations History of Present Illness: Patient is a 33-year-old female with history of ectopic presents to the emergency department complaining of left lower quadrant abdominal pain onset past couple days. Patient states she is 7 weeks based off of last normal menstrual period. She also is noting some vaginal bleeding, has been intermittent though states that it was ramping up while in the waiting room. She arrives slightly tachycardic but rest of her vitals unremarkable. Denies any episodes of syncope or lightheadedness. States this feels identical to her prior ectopic , which was in 2019. No other symptoms to report at this time, states the pain is a 7/10 and does radiate to her left lower back. No urinary symptoms or changes in bowel. MD Complaint: abdominal pain and vaginal bleeding Onset (ago): day(s) Pain Consistency: constant Location: pelvis Severity: severe Vaginal bleeding: heavy Patient : Yes OB History - Previous Pregnancies: other (Ectopic) Associated symptoms: Reports abdominal pain; Deny dysuria, headache(s), nausea or vomiting Related Data: : 4 Review of Systems 2 General: Reports: 10 or more systems reviewed and unremarkable except in HPI and below Const: Denies: fever(s), chills, change in appetite, change in weight or diaphoresis ENMT: Denies: throat pain or hoarseness Card: Denies: chest pain, palpitations or lightheadedness Resp: Denies: dyspnea, productive cough or wheezing GI: Reports: abdominal pain; Denies: nausea, vomiting, diarrhea, constipation, bloating, change in stool character or hematochezia : Reports: vaginal bleeding; Denies: flank pain, difficulty voiding, dysuria, urinary frequency or urinary urgency Musc: Reports: back pain; Denies: neck pain Skin/Breast: Denies: rash or new lesions Neuro: Denies: headache(s) or dizziness PFSH ED 2 PFSH: Medical History Women's annual routine gynecological examination No pertinent past medical history Denies history of: hypercholesterolemia, liver, lung, kidney, thyroid problems, bleeding or clotting disorders, DVT/PE, genital herpes. PCP: None History of ectopic (~2019) Treated with methotrexate Surgical History No pertinent past surgical history Family History Grandmother Diabetes Paternal grandmother Family/Other Ovarian cancer Paternal aunt Uterine cancer Paternal aunt Mother Stroke Hypertension Family history of thyroid problem Father Heart disease Denies family history of Colon cancer Hyperlipidemia Breast cancer Social History Smoking and tobacco/nicotine status: former use of tobacco/nicotine Alcohol intake: never Substance/Drug Use: never Additional social history: - - Female Reproductive History: : 4 Physical Exam 2 Const: COMMON NORMALS: average body habitus, patient oriented x3, no limitations, healthy appearing, alert and well nourished GENERAL APPEARANCE: cooperative, comfortable and anxious ORIENTATION/CONSCIOUSNESS: Yes awake HENMT: COMMON NORMALS: normocephalic, atraumatic, hearing grossly normal bilaterally, external ears normal, Normal external nose present, Normal nasal mucous membranes and turbinates present and moist oral mucous membranes HEAD & SCALP: normocephalic and atraumatic NOSE: Normal external nose present and Normal nasal mucous membranes and turbinates present EXTERNAL EAR: Yes external ears normal Eye: COMMON NORMALS: Equal, round and reactive pupils present, EOMs intact bilaterally, conjunctivae normal and normal visual cordero by confrontation C ONJUNCTIVA: Yes conjunctivae normal PUPIL: Yes Equal, round and reactive pupils present Neck/C-Spine: COMMON NORMALS: full ROM, supple, no meningeal signs and no JVD Resp: COMMON NORMALS: normal respiratory effort, No retractions, No use of accessory muscles and clear to auscultation bilaterally AUSCULTATION: clear to auscultation bilaterally, no crackles, no rales, no rhonchi and no wheezes Cardio: COMMON NORMALS: no JVD, regular rate, regular rhythm, S1 normal heart sound present, S2 normal heart sound present, No gallops present (Cardio), No clicks present (Cardio), No murmurs present (Cardio), No rub (Cardio) and Peripheral pulses 2+ throughout RATE: regular rate RHYTHM: regular rhythm HEART SOUNDS: S1 normal heart sound present and S2 normal heart sound present PERIPHERAL PULSES: Peripheral pulses 2+ throughout GI: COMMON NORMALS: Normal to inspection, nondistended, normoactive bowel sounds present, Soft to palpation, non-tender, No hepatosplenomegaly present and no masses AUSCULTATION: Yes normoactive bowel sounds PALPATION: Yes Soft to palpation, No Guarding due to palpation present (GI), No Rigid due to palpation and Yes No hepatosplenomegaly present RECTAL EXAM: deferred O THER: No significant reproducible tenderness to palpation on exam : COMMON NORMALS: Yes no CVA tenderness BLADDER/KIDNEY EXAM: Yes no CVA tenderness Back/Pelvis: COMMON NORMALS: no CVA tenderness Extremity: COMMON NORMALS: normal to inspection and full ROM Neuro: COMMON NORMALS: patient oriented x3, moves all extremities, no focal motor deficits and no sensory deficits noted SENSORIUM/ORIENTATION: Yes alert MENINGEAL SIGNS: Yes no meningeal signs Psych: COMMON NORMALS: mental status grossly normal, cooperative and speech normal SPEECH: Yes normal speech Skin: COMMON NORMALS: no rashes or lesions noted GENERAL SKIN EXAM: no rashes or lesions noted Course 2 Vital Signs: Vital signs: Vital Signs Temperature 98.1 F 04/25/24 03:45 Pulse Rate 90 04/25/24 05:45 Respiratory Rate 18 04/25/24 05:45 Blood Pressure 114/71 04/25/24 05:45 Pulse Oximetry 94 04/25/24 05:45 Oxygen Delivery Me thod Room Air 04/25/24 05:45 Oxygen Flow Rate 6 04/25/24 02:05 MDM - OB/Uterine Contractions Medical Decision Making Patient presented to the emergency department for evaluation of left lower quadrant pain, history of ectopic . 7 weeks based on last normal menstrual period. She was anxious on exam and tearful, however examination ultimately unremarkable. Her CBC revealed slight bump in white count, though ultimately was unremarkable. Her serum hCG just over 1999. Blood type a positive. History of ectopic previously in 1999, though states that she was medically treated at that time and did not require surgery. Ultrasound transvaginally did show an ectopic to the left adnexa. Spoke with Dr. Brody Ruiz, DEMAND PLANNER, who states he will see the patient in the OR later tonight. He recommends n.p.o. at this time and continuing on IV fluids as well as pain control. press shop supervisor called to get OR surgery team together. Discussed with patient plan for surgery, she agrees at this time and all other questions and concerns are addressed. This case was discussed with ED physician, Dr. Burch, who put in admit orders at this time. Lab Data 04/25/24 05:40 Radiology Impressions Transvaginal US 04/24/24 22:27 IMPRESSION: The gestational sac and yolk sac are seen within a lesion in the left adnexa compatible with ectopic . No pole is seen. COMMENT: THIS REPORT CONTAINS FINDINGS THAT MAY BE CRITICAL TO PATIENT CARE. The exam findings were verbally communicated by me to KI MARIANO via telephone conference at 12:07 AM CDT on 04/25/2024. The findings were acknowledged and understood. Laboratory Results WBC 14.49 10^3/uL (3.29-11.43) H 04/24/24 22:22 RBC 5.20 10^6/uL (3.85-5.65) 04/24/24 22:22 Hgb 15.20 g/dL (11.27-16.99) 04/24/24 22:22 Hct 46.8 % (36-47) 04/24/24 22:22 MCV 90.0 fl (85-98) 04/24/24 22:22 MCH 29.2 pg (27-33) 04/24/24 22:22 MCHC 32.5 g/dL (30-55) 04/24/24 22:22 RDW 13.8 % (12.1-15.1) 04/24/24 22:22 Plt Count 197 10^3/cmm (157-399) 04/24/24 22:22 MPV 12.7 fL (7.4-10.4) H 04/24/24 22:22 Neut % (Auto) 77.9 % 04/24/24 22:22 Lymph % (Auto) 15.5 % 04/24/24 22:22 Beauregard % (Auto) 4.5 % 04/24/24 22:22 Eos % (Auto) 1.0 % 04/24/24 22:22 Baso % (Auto) 0.8 % 04/24/24 22:22 Neut # (Auto) 11.29 10^3/uL (1.8-7.7) H 04/24/24 22:22 Lymph # (Auto) 2.3 10^3/uL (0.8-4.8) 04/24/24 22:22 Beauregard # (Auto) 0.7 10^3/uL (0.2-0.9) 04/24/24 22:22 Eos # (Auto) 0.2 10^3/uL (0.0-0.8) 04/24/24 22:22 Baso # (Auto) 0.1 10^3/uL (0.0-0.1) 04/24/24 22:22 Nucleated RBC % (auto) 0 % 04/24/24 22:22 Nucleated RBCs # 0.0 /100WBC 04/24/24 22:22 Ser , Semi-Qnt 2311.00 mIU/mL 04/24/24 22:22 Blood Type A Positive 04/24/24 23:08 Rho(D) Type Rh positive 04/24/24 23:08 All radiology interpretation(s) finalized by discharge Discharge Plan Discharge Patient Disposition: Admitted As Inpatient Admit Provider: Brody Milton Clinical Impression: Ectopic Condition: Stable Coding Level of Care Code ED Shearing Machine Tender for Chg Fwd Documented by User: Enio Miller DO 04/25/24 06:51 HPI - 2 General: Chief complaint: OB/Uterine Contractions Stated complaint: 7 weeks preg, cramps Time Seen by Provider: 04/24/24 21:46 PFSH ED 2 PFSH: Medical History Women's annual routine gynecological examination No pertinent past medical history Denies history of: hypercholesterolemia, liver, lung, kidney, thyroid problems, bleeding or clotting disorders, DVT/PE, genital herpes. PCP: None History of ectopic (~2018) Treated with methotrexate Surgical History No pertinent past surgical history Family History Grandmother Diabetes Paternal grandmother Family/Other Ovarian cancer Paternal aunt Uterine cancer Paternal aunt Mother Stroke Hypertension Family history of thyroid problem Father Heart disease Denies family history of Colon cancer Hyperlipidemia Breast cancer Social History Smoking and tobacco/nicotine status: former use of tobacco/nicotine Alcohol intake: never Substance/Drug Use: never Additional social history: - - Course 2 Vital Signs: Vital signs: Vital Signs Temperature 98.1 F 04/25/24 03:45 Pulse Rate 90 04/25/24 05:45 Respiratory Rate 18 04/25/24 05:45 Blood Pressure 114/71 04/25/24 05:45 Pulse Oximetry 94 04/25/24 05:45 Oxygen Delivery Me thod Room Air 04/25/24 05:45 Oxygen Flow Rate 6 04/25/24 02:05 MDM - OB/Uterine Contractions Medical Decision Making Patient presented to the emergency department for evaluation of left lower quadrant pain, history of ectopic . 7 weeks based on last normal menstrual period. She was anxious on exam and tearful, however examination ultimately unremarkable. Her CBC revealed slight bump in white count, though ultimately was unremarkable. Her serum hCG just over 1999. Blood type a positive. History of ectopic previously in 1999, though states that she was medically treated at that time and did not require surgery. Ultrasound transvaginally did show an ectopic to the left adnexa. Spoke with Dr. Brody Ruiz, DEMAND PLANNER, who states he will see the patient in the OR later tonight. He recommends n.p.o. at this time and continuing on IV fluids as well as pain control. press shop supervisor called to get OR surgery team together. Discussed with patient plan for surgery, she agrees at this time and all other questions and concerns are addressed. This case was discussed with ED physician, Dr. Burch, who put in admit orders at this time. Chart reviewed Lab Data 04/25/24 05:40 Radiology Impressions Transvaginal US 04/24/24 22:27 IMPRESSION: The gestational sac and yolk sac are seen within a lesion in the left adnexa compatible with ectopic . No pole is seen. COMMENT: THIS REPORT CONTAINS FINDINGS THAT MAY BE CRITICAL TO PATIENT CARE. The exam findings were verbally communicated by me to KI MARIANO via telephone conference at 12:07 AM CDT on 04/25/2024. The findings were acknowledged and understood. Laboratory Results WBC 14.49 10^3/uL (3.29-11.43) H 04/24/24 22:22 RBC 5.20 10^6/uL (3.85-5.65) 04/24/24 22:22 Hgb 15.20 g/dL (11.27-16.99) 04/24/24 22:22 Hct 46.8 % (36-47) 04/24/24 22: MCV 90.0 fl (85-98) 04/24/24 22:22 MCH 29.2 pg (27-33) 04/24/24 22: MCHC 32.5 g/dL (30-55) 04/24/24 22:22 RDW 13.8 % (12.1-15.1) 04/24/24 22:22 Plt Count 197 10^3/cmm (157-399) 04/24/24 22:22 MPV 12.7 fL (7.4-10.4) H 04/24/24 22: Neut % (Auto) 77.9 % 04/24/24 22: Lymph % (Auto) 15.5 % 04/24/24 22:22 Beauregard % (Auto) 4.5 % 04/24/24 22: Eos % (Auto) 1.0 % 04/24/24 22:22 Baso % (Auto) 0.8 % 04/24/24 22:22 Neut # (Auto) 11.29 10^3/uL (1.8-7.7) H 04/24/24 22:22 Lymph # (Auto) 2.3 10^3/uL (0.8-4.8) 04/24/24 22:22 Beauregard # (Auto) 0.7 10^3/uL (0.2-0.9) 04/24/24 22:22 Eos # (Auto) 0.2 10^3/uL (0.0-0.8) 04/24/24 22:22 Baso # (Auto) 0.1 10^3/uL (0.0-0.1) 04/24/24 22:22 Nucleated RBC % (auto) 0 % 04/24/24 22:22 Nucleated RBCs # 0.0 /100WBC 04/24/24 22:22 Ser , Semi-Qnt 2311.00 mIU/mL 04/24/24 22:22 Blood Type A Positive 04/24/24 23:08 Rho(D) Type Rh positive 04/24/24 23:08 Discharge Plan Discharge Patient Disposition: Admitted As Inpatient Admit Provider: Brody Milton Clinical Impression: Ectopic Condition: Stable Coding Level of Care Code ED Shearing Machine Tender for Zoila Marroquin
[2024-04-25] VITALS (14 sets, daily range): BP systolic 109–163; BP diastolic 53–96; PULSE 86–111; RESP 14–22; TEMP 36.7–37; O2SAT 90–96; BMI 33.4
--- NOTE | 2024-04-25 00:31 | P.ANESASSM_ITS ---
Pre-Anesthetic Assessment Height/Weight: Height 1.65 m Weight 91.172 kg Temp Pulse Resp BP Pulse Ox O2 Del Method 98.8 F 99 16 136/115 95 Room Air 04/24/24 20:36 04/24/24 20:40 04/24/24 22:45 04/24/24 23:29 04/24/24 22:45 04/24/24 20:40 Operation Date: 04/25/24 01:00 Proposed Procedures p Laparoscopic Ectopic (Not Applicable) - Brody Milton MD Familial anesthetic complications: None Was Beta Barry taken within 24 hours: N/A Was Clonidine taken within 24 hours: N/A Last intake: Slice of pizza 1600 on 04/24 (8.5 hrs) broccoli 18:30 on (6 hrs) Social No alcohol and No tobacco Exam alert, oriented x 3, clear to auscultation bilaterally and regular rate & rhythm Airway Mallampati: Class I Dentition: chipped CV/HEM gestational HTN hx ectopic Anesthetic Plan ASA status: 1E Anesthesia: General Risk of > 500 ml blood loss (7ml/kg in children): No Medications/Allergies Home Medications Medication Instructions Recorded Confirmed Last Taken Type medroxyprogesterone 10 mg tablet 10 mg PO DAILY #10 tabs 01/03/24 Unknown Rx (Provera) Allergies Allergy/AdvReac Type Severity Reaction Status Date / Time No Known Allergies Allergy Verified 04/24/24 20:33 [facility] Anesthesia Medical History History of ectopic (~2018) Treated with methotrexate No pertinent past medical history Denies history of: hypercholesterolemia, liver, lung, kidney, thyroid problems, bleeding or clotting disorders, DVT/PE, genital herpes. PCP: None Women's annual routine gynecological examination Surgical History No pertinent past surgical history Family History Grandmother Diabetes Paternal grandmother Family/Other Ovarian cancer Paternal aunt Uterine cancer Paternal aunt Mother Stroke Hypertension Family history of thyroid problem Father Heart disease Denies family history of Colon cancer Hyperlipidemia Breast cancer Social History Smoking and tobacco/nicotine status: former use of tobacco/nicotine Alcohol intake: never Substance/Drug Use: never Additional social history: - - Female Reproductive History : 4 Data Anesthesia 04/24/24 22:22 Short CBC 04/24/24 Range/Units 22:22 WBC 14.49 H (3.29-11.43) 10^3/uL Hgb 15.20 (11.27-16.99) g/dL Hct 46.8 (36-47) % MCV 90.0 (85-98) fl Plt Count 197 (157-399) 10^3/cmm Neut % (Auto) 77.9 % Neut # (Auto) 11.29 H (1.8-7.7) 10^3/uL Blood Bank 04/24/24 23:08 Blood Type A Positive Rho(D) Type Rh positive Cardiac Studies: 2 No Data to Display
--- NOTE | 2024-04-25 00:34 | PM.OBGYHP ---
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 History of Present Illness Ana Whalen is a 33 year old female came to the emergency room with left-sided pelvic pain and vaginal bleeding positive test and ultrasound subjective have ectopic Present Details : 4 Para: 2 Review of Systems General: Reports: 10 or more systems reviewed and unremarkable except in HPI and below Const: Denies: fever(s) or chills ENMT: Denies: throat pain Card: Denies: chest pain Resp: Denies: dyspnea, productive cough or non-productive cough GI: Denies: abdominal pain : Reports: vaginal bleeding (3 days) and pelvic pain (left side); Denies: flank pain, difficulty voiding, dysuria, urinary frequency, urinary urgency, urinary incontinence, genital lesions, genital pruritis, vaginal dryness, vaginal odor, vaginal discharge, dysmenorrhea, irregular period, metrorrhagia, amenorrhea, prolapse symptoms or dyspareunia Medications/Allergies Home Medications Medication Instructions Recorded Confirmed Last Taken Type medroxyprogesterone 10 mg tablet 10 mg PO DAILY #10 tabs 01/03/24 Unknown Rx (Provera) Allergies Allergy/AdvReac Type Severity Reaction Status Date / Time No Known Allergies Allergy Verified 04/24/24 20:33 PFSH INTERNET 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 PCP: None History of ectopic (~2019) Treated with methotrexate Surgical History No pertinent past surgical history Family History Grandmother Diabetes Paternal grandmother Family/Other Ovarian cancer Paternal aunt Uterine cancer Paternal aunt Mother Stroke Hypertension Family history of thyroid problem Father Heart disease Denies family history of Colon cancer Hyperlipidemia Breast cancer Social History Smoking and tobacco/nicotine status: former use of tobacco/nicotine Alcohol intake: never Substance/Drug Use: never Additional social history: - - History History History 4 Term 2 0 Miscarriages/Ectopic 1 Living Children 2 Vitals/I&O/Wt Last Vital Signs Temp 98.6 F 04/25/24 00:32 Pulse 100 04/25/24 00:32 Resp 17 04/25/24 00:32 BP 157/91 04/25/24 00:32 Pulse Ox 94 04/25/24 00:32 O2 Del Method Room Air 04/25/24 00:32 Weight last 48 hrs Weight 91.172 kg Physical Exam Const: COMMON NORMALS: no acute distress, average body habitus and patient oriented x3 GENERAL APPEARANCE: cooperative and well kempt HENMT: COMMON NORMALS: normocephalic and atraumatic HEAD & SCALP: normocephalic and atraumatic Neck/C-Spine: COMMON NORMALS: full ROM Chest: COMMONS NORMALS: normal inspection of the chest Resp: COMMON NORMALS: normal respiratory effort Cardio: COMMON NORMALS: regular rate and regular rhythm RATE: regular rate RHYTHM: regular rhythm GI: INSPECTION: Yes normal to inspection : SPECULUM EXAM - VAGINA: Yes vaginal bleeding Amount: scant Neuro: COMMON NORMALS: patient oriented x3 Psych: APPEARANCE: Yes well kempt Data 04/24/24 22:22 Results Labs OB ([facility]): Obstetrics US 03/02/20 Obstetrics US/Biophysical Profile 06/22/20 Blood Type A Positive 04/24/24 Antibody Screen Negative 01/07/20 Hct 46.8 % (36-47) 04/24/24 Hgb 15.20 g/dL (11.27-16.99) 04/24/24 Rho(D) Type Rh positive 04/24/24 Plt Count 197 10^3/cmm (157-399) 04/24/24 Hep Bs Antigen Non-reactive (Nonreactive) 01/07/20 Hepatitis C Antibody Non-reactive (Nonreactive) 01/07/20 Rubella IgG Antibody 113.0 IU/mL (0.0-9.0) H 01/07/20 RPR Nonreactive (Nonreactive) 01/07/20 HIV 1&2 Ab & HIV 1 Ag Non-reactive (Non-Reactiv) 01/07/20 Glucose 1 Hr 50 gm 96 mg/dL (85-140) 05/03/20 Uric Acid 4.5 mg/dL (2.4-5.7) 06/29/20 Ser , Semi-Qnt 2311.00 mIU/mL 04/24/24 HCG, Qual Negative (Negative) 08/25/20 Urine Opiates Screen Negative ng/mL (Negative) 01/07/20 Ur Barbiturates Screen Negative ng/mL (Negative) 01/07/20 Ur Phencyclidine Scrn Negative ng/mL (Negative) 01/07/20 Ur Amphetamines Screen Negative ng/mL (Negative) 01/07/20 U Benzodiazepines Scrn Negative ng/mL (Negative) 01/07/20 Urine Cocaine Screen Negative ng/mL (Negative) 01/07/20 U Marijuana (THC) Screen Negative ng/mL (Negative) 01/07/20 Micro Urine Specimen 06/22/20 Pap Smear Interpret See note A 10/04/22 HR ADMINISTRATOR Ultrasound FINDINGS: Gestation: The gestational sac and yolk sac are seen within a lesion in the left adnexa. No pole is seen. BIOMETRY: Mean sac diameter: 0.58 cm. EGA (MSD) is 5 w 2 d MATERNAL: Uterus: Uterus measures 8.94 cm x 5.81 cm x 4.76 cm. Right ovary/adnexa: Right ovary measures 4 cm x 2.7 cm x 4.2 cm. Right ovarian volume is 24 mL. Left ovary/adnexa: Left ovary measures 3 cm x 2.1 cm x 4 cm. Left ovarian volume is 13.5 mL. Intraperitoneal space: Moderate free fluid within the cul-de-sac. US/ OB transvaginal [id number] IMPRESSION: The gestational sac and yolk sac are seen within a lesion in the left adnexa compatible with ectopic . No pole is seen. A&P Assessment and plan (1) Ectopic without intrauterine : Mrs. Smith 33-year-old female G4, P2 with an EGA of approximately 6 weeks 4 days from LMP March 09, 2024. Came to the emergency room with left-sided pelvic pain and vaginal bleeding. Ultrasound suggestive of left adnexal ectopic and fluid in pelvis. Patient past medical history significant for previous ectopic on the same side that was treated with methotrexate in 2019. Qualifiers: Laterality: left Location of ectopic : tubal Qualified Code(s): O00.102 - Left tubal without intrauterine Plan Diagnostic laparoscopy possible salpingectomy Attestations Medical Necessity Statement*: In my professional opinion per admitting diagnosis Coding Level of Care Code Acute Code for Chg Fwd Diagnoses Left tubal without intrauterine O00.102 Laterality: left Location of ectopic : tubal
[2024-04-25] MEDS: ceFAZolin 1,000 mg SDV 2000 MG IVP (00:35)
[2024-04-25] MEDS: BUPivacaine 0.5% INJ 10 mL INJECTION (01:21)
--- NOTE | 2024-04-25 02:02 | PM.OP ---
Operative Report Date of procedure: April 25, 2024 Pre-op diagnosis: Left ectopic Post-op diagnosis: Ruptured left ectopic Procedure done: Diagnostic laparoscopy Partial salpingectomy Specimens removed/disposition: Left fallopian tube with ectopic Surgeon: Brody Milton MD Estimated blood loss (mL): 300 IV fluids: Normal saline 1000 mL Albumin 250 mL Urine output (mL): 100 Complications: Bleeding Findings: Hemoperitoneum Left ectopic Brief History: Mrs. Whalen 33-year-old female G4, P2 with an approximate estimated gestational age at 6 weeks 4 days. Came to the emergency room with left lower side pelvic pain and vaginal bleeding. Ultrasound showed a left ectopic with moderate free fluid within the cul-de-sac. Procedure: After informed consent, the patient was taken to the operating room where general anesthesia was administered. She was placed in the dorsal lithotomy position and prepped and draped in sterile fashion. Pre-Procedure Time-Out verifying the correct patient identity, correct procedure verified with consent, correct site and side, correct patient position, availability of correct implants and any special equipment or requirements was performed and acknowledge by the OR team. The patient was examined under anesthesia and found to have a normal uterus with normal adnexa. A weighted speculum was placed in the vagina, and the anterior lip of cervix was grasped with the single toothed tenaculum. A uterine manipulator was advanced into the endocervical canal and uterus. The tenaculum was removed after uterine manipulator was secured. The speculum was removed from the vagina. An intraumbilical incision was made with a scalpel. While tenting up on the abdomen, a Verres needle was admitted into the intra-abdominal cavity. A saline drop test was performed and noted to be within normal limits. Pneumoperitoneum was attained with 4 liters of carbon dioxide. The Verres needle was removed. A 5 mm Opitc view trocar and sleeve were admitted into the abdomen and laparoscopic confirmation of location was achieved. A second incision was made 3 cm above the symphysis pubis, and a 10 mm trocar sleeves were admitted into the abdomen under direct laparoscopic visualization without complication. A third incision was made at left lower quadrant and a 5 mm trocar sleeves were admitted into the abdomen under direct laparoscopic visualization without complication. A survey of the abdominal cavity revealed moderate amount of free blood in cul-de-sac and left fallopian tube ectopic . Then the fallopian tube and mesosalpinx were grasped and the underlying mesosalpinx was cauterized and cut using the Ligasure device. Serial cauterization and cutting was used to separate the fallopian tube from the underlying mesosalpinx until it could be amputated cutting it approximated 3 cm from the cornua. Left fallopian tube and ectopic was placed in a endobag and removed from the abdominal cavity through the suprapubic trocar port and sent to pathology. The pelvic area was copiously irrigated and cleared of all free blood. Good hemostasis was noted. Then the instruments were removed. The suprapubic trocar port was removed under direct visualization insuring good hemostasis. The carbon dioxide was allowed to escape from the abdomen. The intraumbilical trocar sleeve was withdrawn under visualization with laparoscope in the sleeve to insure hemostasis. The skin incisions were closed with 3-O Monocryl subcuticular stich and Dermabond. The instruments were removed from the vagina, and excellent hemostasis was noted. The patient tolerated the procedure well, and sponge, lap and needle count were correct times two. The patient was taken to the recovery room in good condition.
--- NOTE | 2024-04-25 02:05 | W.PM.BPON ---
Date of Procedure: 04/25/24 Surgeon: Brody Milton MD Food Products Tester(s): Procedure(s) performed: Diagnostic laparoscopy, left salpingectomy Findings of the procedure(s): Hemoperitoneum, left ectopic Estimated blood loss: 300 Specimen(s) removed: Left fallopian tube with ectopic Post-operative diagnosis: Ruptured left ectopic
--- NOTE | 2024-04-25 02:35 | ANE.PACU2 ---
Inpatient post-anesthesia follow up: Airway intact: Yes Vital signs: Temperature 98.1 F Pulse Rate 90 Respiratory Rate 18 Blood Pressure 114/71 Pulse Oximetry 94 Oxygen Delivery Me thod Room Air Oxygen Flow Rate 6 Fraction of Inspir ed Oxygen Hydration adequate: Yes Nausea and vomiting: No Pain level: 1 Mental status: Baseline
[2024-04-25] MEDS: HYDROcodone-acetaminophen 5-325 mg Tablet PO (03:17)
[2024-04-25] MEDS: ketorolac 30 mg/mL INJ IVP (03:17)
[2024-04-25] MEDS: simethicone 80 mg Chew PO (03:17)
[2024-04-25] MEDS: dextrose 5%-lactated ringers 1,000 ML 125 ML IV (03:21)
[2024-04-25 05:46] LABS: Hematocrit 39.4 % (36-47); Mean Corpuscular HGB Conc 33.5 g/dL (30-55); Mean Corpuscular Hemoglobin 29.3 pg (27-33); Mean Corpuscular Volume 87.6 fl (85-98); Mean Platelet Volume 11.9 fL (7.4-10.4); Platelet Count 165 10^3/cmm (157-399); Red Cell Distribution Width 13.9 % (12.1-15.1); White Blood Count 17.95 10^3/uL (3.29-11.43)
[2024-04-25 06:27] LABS: HIV 1 & 2 Antigen Non-Reactive (Non-Reactiv)
[2024-04-25 06:28] LABS: HIV 1 & 2 Antibody Non-Reactive (Non-Reactiv)
--- NOTE | 2024-04-25 09:07 | P.DS_ITS ---
Discharge Providers QUALITATIVE EXECUTIVE RESEARCHER Date of Admission: 04/25/24 01:14 Date of Discharge: 04/25/24 Attending Provider at Admission: Brody Milton MD Attending Provider at Discharge: Brody Milton MD Primary Care Provider: Nadege Soto DO Diagnoses at Discharge Discharge Diagnosis (1) Ectopic without intrauterine : Status: Acute Qualifiers: Location of ectopic : tubal Laterality: left Qualified Code(s): O00.102 - Left tubal without intrauterine Reason for Visit Reason for Visit: 7 weeks preg, cramps Physical Exam Narrative: GA: Alert and oriented ?3. HEENT: WNL. Heart: Regular rate and rhythm. Lungs: Clear to auscultation bilaterally. Abdomen: Bowel sounds present, nontender, minimal tenderness, incision clean and dry, no redness, pain or edema. CLUSTER BORE OPERATOR: spotting bleeding. Extremities: No edema, no cyanosis, no calves pain. Urinary Catheter Management: Gonsales Latex Free: Cath Placed During This Visit: yes Urinary Catheter Date of Insertion: 04/25/24 Urinary Catheter Time of Insertion: 01:05 History History History 4 Term 2 0 Miscarriages/Ectopic 1 Living Children 2 Discharge Data Studies Completed and Pending Completed Studies During Hospitalization Category Date Time Status US OB transvaginal [id number] Stat Ultrasound 04/24/24 22:27 Completed Pending at discharge Category Date Time Status Pathology: Surgical [PTH] Routine Pth 04/25/24 01:43 Received Radiology Impressions Transvaginal US 04/24/24 22:27 IMPRESSION: The gestational sac and yolk sac are seen within a lesion in the left adnexa compatible with ectopic . No pole is seen. COMMENT: THIS REPORT CONTAINS FINDINGS THAT MAY BE CRITICAL TO PATIENT CARE. The exam findings were verbally communicated by me to KI MARIANO via telephone conference at 12:07 AM CDT on 04/25/2024. The findings were acknowledged and understood. Laboratory Results WBC 17.95 10^3/uL (3.29-11.43) H 04/25/24 05:40 RBC 4.50 10^6/uL (3.85-5.65) 04/25/24 05:40 Hgb 13.20 g/dL (11.27-16.99) 04/25/24 05:40 Hct 39.4 % (36-47) 04/25/24 05:40 MCV 87.6 fl (85-98) 04/25/24 05:40 MCH 29.3 pg (27-33) 04/25/24 05:40 MCHC 33.5 g/dL (30-55) 04/25/24 05:40 RDW 13.9 % (12.1-15.1) 04/25/24 05:40 Plt Count 165 10^3/cmm (157-399) 04/25/24 05:40 MPV 11.9 fL (7.4-10.4) H 04/25/24 05:40 Neut % (Auto) 77.9 % 04/24/24 22:22 Lymph % (Auto) 15.5 % 04/24/24 22:22 Hooker % (Auto) 4.5 % 04/24/24 22:22 Eos % (Auto) 1.0 % 04/24/24 22:22 Baso % (Auto) 0.8 % 04/24/24 22:22 Neut # (Auto) 11.29 10^3/uL (1.8-7.7) H 04/24/24 22:22 Lymph # (Auto) 2.3 10^3/uL (0.8-4.8) 04/24/24 22:22 Hooker # (Auto) 0.7 10^3/uL (0.2-0.9) 04/24/24 22:22 Eos # (Auto) 0.2 10^3/uL (0.0-0.8) 04/24/24 22:22 Baso # (Auto) 0.1 10^3/uL (0.0-0.1) 04/24/24 22:22 Nucleated RBC % (auto) 0 % 04/24/24 22:22 Nucleated RBCs # 0.0 /100WBC 04/24/24 22:22 Ser , Semi-Qnt 2311.00 mIU/mL 04/24/24 22:22 HIV 1&2 Ab & HIV 1 Ag Non-reactive (Non-Reactiv) 04/25/24 05:40 HIV 1&2 Antibody Non-reactive (Non-Reactiv) 04/25/24 05:40 Blood Type A Positive 04/24/24 23:08 Rho(D) Type Rh positive 04/24/24 23:08 Vitals Last Vital Signs Temp 98.1 F 04/25/24 03:45 Pulse 90 04/25/24 05:45 Resp 18 04/25/24 05:45 BP 114/71 04/25/24 05:45 Pulse Ox 94 04/25/24 05:45 O2 Del Method Room Air 04/25/24 05:45 O2 Flow Rate 6 04/25/24 02:05 Results Labs OB ([facility]): Obstetrics US 03/02/20 Obstetrics US/Biophysical Profile Blood Type A Positive 04/24/24 Antibody Screen Negative 01/07/20 Hct 39.4 % (36-47) 04/25/24 Hgb 13.20 g/dL (11.27-16.99) 04/25/24 Rho(D) Type Rh positive 04/24/24 Plt Count 165 10^3/cmm (157-399) 04/25/24 Hep Bs Antigen Non-reactive (Nonreactive) 01/07/20 Hepatitis C Antibody Non-reactive (Nonreactive) 01/07/20 Rubella IgG Antibody 113.0 IU/mL (0.0-9.0) H 01/07/20 RPR Nonreactive (Nonreactive) 01/07/20 HIV 1&2 Ab & HIV 1 Ag Non-reactive (Non-Reactiv) 04/25/24 Glucose 1 Hr 50 gm 96 mg/dL (85-140) 05/03/20 Uric Acid 4.5 mg/dL (2.4-5.7) 06/29/20 Ser , Semi-Qnt 2311.00 mIU/mL 04/24/24 HCG, Qual Negative (Negative) 08/25/20 Urine Opiates Screen Negative ng/mL (Negative) 01/07/20 Ur Barbiturates Screen Negative ng/mL (Negative) 01/07/20 Ur Phencyclidine Scrn Negative ng/mL (Negative) 01/07/20 Ur Amphetamines Screen Negative ng/mL (Negative) 01/07/20 U Benzodiazepines Scrn Negative ng/mL (Negative) 01/07/20 Urine Cocaine Screen Negative ng/mL (Negative) 01/07/20 U Marijuana (THC) Screen Negative ng/mL (Negative) 01/07/20 Micro Urine Specimen 06/22/20 Pap Smear Interpret See note A 10/04/22 CLUSTER BORE OPERATOR Ultrasound FINDINGS: Gestation: The gestational sac and yolk sac are seen within a lesion in the left adnexa. No pole is seen. BIOMETRY: Mean sac diameter: 0.58 cm. EGA (MSD) is 5 w 2 d MATERNAL: Uterus: Uterus measures 8.94 cm x 5.81 cm x 4.76 cm. Right ovary/adnexa: Right ovary measures 4 cm x 2.7 cm x 4.2 cm. Right ovarian volume is 24 mL. Left ovary/adnexa: Left ovary measures 3 cm x 2.1 cm x 4 cm. Left ovarian volume is 13.5 mL. Intraperitoneal space: Moderate free fluid within the cul-de-sac. US/US OB transvaginal [id number] IMPRESSION: The gestational sac and yolk sac are seen within a lesion in the left adnexa compatible with ectopic . No pole is seen. Discharge Plan Discharge Patient Disposition: Home Condition: Stable Prescriptions: New hydrocodone-acetaminophen 5-325 mg tablet 1 tab PO Q4H PRN (Reason: pain) Qty: 20 0RF acetaminophen 325 mg capsule 325 mg PO Q4H PRN (Reason: fever or postoperative pain) Qty: 60 0RF ibuprofen 800 mg tablet 800 mg PO TID PRN (Reason: pain) Qty: 60 0RF Discontinued medroxyprogesterone [Provera] 10 mg tablet 10 mg PO DAILY Qty: 10 0RF Discharge Orders: Discharge Order (Routine); Ordered 04/25/24 Ordered By: Brody Milton Referrals: Nadege Soto DO [Primary Care Provider] - Brody Milton MD [Physician] - 2 weeks Discharge Diet: Usual diet Discharge Activity: Limit activity as instructed Patient Instructions: Opioid Safety Activity Restrictions/Additional Instructions: 1. Please call [facility] on next working day to make your post-operative appointment in 2 weeks. 2. Please stay home until you come back to the clinic on first post- hospatilization check up. 3. Please follow instructions on your medications CAREFULLY. 4. If you have abdominal incision, do not cover it unless dressing is necessary because of drainage. OK to shower, but avoid bath. Leave steri-strips until they fall off. If they are still on one week after surgery, you may remove them. 5. If you had vaginal surgery or vaginal repair, Dr. Milton may instruct you to take SITZ bath. 6. Yellow, blood tinged odorous vaginal discharge is usually normal after hysterectomy or vaginal surgeries. 7. No SEXUAL INTERCOURSE, tampons, or douches until you are completely released from the post-operative care. 8. Avoid constipation by eating right and maybe using some Metamucil or Milk of Magnesia. 9. All prescription refills are given during the working hours. Please do no wait till it runs out. Call the clinic at [phone] before your medication runs out. The clinic will get in touch with your doctor to prescribe medications if necessary. 10. Please remain within 40 mile radius from our hospital because emergencies do happen now and then during the post-operative period. 11. If you have stairs at home, take one step at a time slowly and minimize the number of trips. It helps to stay in one floor for the next few days. No lifting except what you can lift by one hand until you are released from the post-operative care. 12. Driving is discouraged until you are well healed. It may be 3-4 weeks before you feel strong enough to drive. You should be able to turn and look through the rear window without pain and you should be able to push the brake pedal very hard without pain before you drive. No fast rules, but SAFETY should be your primary concern. DO NOT drive if you are on sedating medications such as narcotics. 13. Call the clinic (during working hours) to make urgent appointment or go to the Emergency room, if any of the following occurs: i. Vaginal bleeding becomes heavy, more than a period. ii. Incision becomes red and sore, or drains pus. iii. Your TEMPERATURE is over 100.4F or you have chill. iv. IV site becomes red and swollen (a little ``knot?? is usually OK) v. Persistent nausea and vomiting vi. Persistent constipation or diarrhea vii. Rash or allergic reaction to medications. Discharge Attestations QUALITATIVE EXECUTIVE RESEARCHER Time Spent in Discharge Care*: greater than 30 min Coding Level of Care Code Acute Code for Chg Fwd Diagnoses Left tubal without intrauterine O00.102 Location of ectopic : tubal Laterality: left
== END 2024-04-25 11:30 | disposition home or self-care (01) ==
LOC: ER 23:42 → OR 04-25 00:09 → OBGYN 04-25 01:47
PROVIDERS: Emergency Medicine; Admitting Provider Obstetrics & Gynecology; Emergency Provider Physician Assistant; PCP Family Medicine; Visit Provider Obstetrics & Gynecology
PROC: (CPT 59150; principal; 2024-04-25 01:00)
DX: O00.102 Left tubal pregnancy without intrauterine pregnancy (principal); Z87.891 Personal history of nicotine dependence
CPT/HCPCS: 59151; 36415; 76817; 84702; 85025; 85027; 86900; 87806; 88305; 96374; 96375; 99285; G0378; J0330; J0690; J1100; J1885; J2270; J2405; J2704; J2710; J3010; J3490; J3535; J7030; J7121; P9045

== ENCOUNTER → 2024-06-06 10:08 | Outpatient (BNVA) | payer OTHER, SELFPAY | PROVIDERS: PCP Family Medicine; Visit Provider Obstetrics & Gynecology | DX: Z48.816 Encounter for surgical aftercare following surgery on the genitourinary system (principal) | CPT/HCPCS: 83001; 84702 ==

== ENCOUNTER 2025-01-07 13:12 | Outpatient (CLI) | payer OTHER, SELFPAY ==
--- NOTE | 2025-01-07 13:30 | US_ITS ---
WS: [id number] ULTRASOUND SOFT TISSUES LEFT lateral forearm HISTORY: acute pain and weakness in left biceps, with deformity COMPARISON: None available. TECHNIQUE: 2-D and color Doppler imaging is submitted. Soft tissue was directed over the LEFT lateral forearm. This is the area of concern as directed by the patient. No mass or fluid collection is identified. Similar appearance between the RIGHT and LEFT forearm. US/US soft tissue/extremity [id number] IMPRESSION: No soft tissue abnormality along the LEFT lateral forearm. If there is a palpable abnormality in weakness of the upper extremity recommend further evaluation of the LEFT upper extremity to better evaluate the biceps t endon. No palpable abnormality or mass is identified on this ultrasound.
== END 2025-01-07 13:13 | disposition home or self-care (01) ==
LOC: RAD 13:14
PROVIDERS: Visit Provider Emergency Medicine
DX: S46.212A Strain of muscle, fascia and tendon of other parts of biceps, left arm, initial encounter (principal); X58.XXXA Exposure to other specified factors, initial encounter
CPT/HCPCS: 76882

== ENCOUNTER → 2025-07-15 11:32 | Outpatient (BNVA) | payer OTHER, SELFPAY | PROVIDERS: Visit Provider Nurse Practitioner Women's Health | DX: Z01.419 Encounter for gynecological examination (general) (routine) without abnormal findings (principal); N92.6 Irregular menstruation, unspecified | CPT/HCPCS: 80053; 82306; 83036; 83520; 83525; 83718; 83721; 84146; 84402; 84403; 84439; 84443; 84481; 85025; 87624 ==

== ENCOUNTER 2025-09-19 12:55 | Emergency (ER) | payer OTHER, SELFPAY ==
[2025-09-19 13:02] VITALS: BP 130/83; PULSE 98; RESP 18; TEMP 36.8; O2SAT 98; BMI 34.9
--- NOTE | 2025-09-19 13:34 | USR_ITS ---
PROCEDURE INFORMATION: Exam: US First Trimester, Transabdominal and US , Transvaginal Exam date and time: 09/19/2025 2:14 PM Age: 35 years old Clinical indication: Lmp or gestational age (in weeks): 6w5d; Antepartum complications; Bleeding; Prior surgery; Surgery date: 6+ months; Surgery type: History of ectopic; Additional info: Threatened miscarriage LABS AND CLINICAL REPORTS: Last menstrual period start date: Unknown Gestational age (Established): 6 w 5 d Estimated due date (Established): 05/10/2026 TECHNIQUE: Imaging protocol: Real-time transabdominal obstetrical ultrasound of the maternal pelvis and a first trimester , less than 14 weeks 0 days, with image documentation. Transvaginal imaging was used for better evaluation of the fetus, adnexa, and/or cervix. COMPARISON: US OB transvaginal [id number] 04/24/2024 11:02 PM FINDINGS: GESTATION: Gestation: No evidence of intrauterine . MATERNAL: Uterus: Uterus measures 7.0 x 5.3 x 5.0 cm. Endometrium measures 9 mm in thickness. No evidence of intrauterine . Right ovary/adnexa: Right ovary measures 2.7 x 2.7 x 2.6 cm. Flow is visualized. There is a masslike structure in the right adnexa measuring approximately 11 mm compatible with an ectopic . Left ovary/adnexa: Left ovary measures 2.2 x 2.8 x 2.8 cm. Flow is visualized. No evidence of adnexal mass. Intraperitoneal space: Small pelvic free fluid. US/US OB <=14 wk fetus w transvag IMPRESSION: 1. Findings suggestive of a right adnexal ectopic . Small pelvic free fluid without sonographic evidence of hemoperitoneum. The findings were verbally communicated by telephone with Dr. SAAVEDRA at 3:00 PM SHEET WRITER on 09/19/2025.
--- NOTE | 2025-09-19 13:44 | W.ED.PREGNAN ---
HPI - General: Chief complaint: Vaginal Bleeding Stated complaint: 6 Weeks Preg Cramping heavy Bleeding Time Seen by Provider: 09/19/25 12:57 Source: patient Mode of arrival: ambulatory Limitations: no limitations History of Present Illness: 35-year-old female who states she is roughly 6 weeks states that over the last 2 days she has had some vaginal bleeding. States is mainly spotting no heavy bleeding denies any clots. States she has had 2 previous ectopic pregnancies in the past. She has not seen OB yet and is scheduled to see them on 07 October. She denies any pain denies any dysuria Related Data Home Medications ?Medication ?Instructions ?Recorded ?Confirmed Uday-Inosital 1 tab PO BID 09/19/25 09/19/25 cholecalciferol (vitamin D3) 25 25 mcg PO DAILY 09/19/25 09/19/25 mcg (1,000 unit) tablet (Vitamin D3) vit no.95-ferrous 1 tab PO DAILY 09/19/25 09/19/25 fumarate 28 mg-folic acid 800 mcg tablet () Allergies Allergy/AdvReac Type Severity Reaction Status Date / Time adhesive Allergy Mild ALGY-Rash Verified 09/19/25 13:06 Review of Systems : Reports: vaginal bleeding PFSH ED PFSH: Medical History No pertinent past medical history Denies history of: hypercholesterolemia, liver, lung, kidney, thyroid problems, bleeding or clotting disorders, DVT/PE, genital herpes. PCP: None History of ectopic (~2018) Treated with methotrexate Surgical History H/O unilateral salpingectomy left tube removed in 2023 due to ectopic No pertinent past surgical history Family History Grandmother Diabetes Paternal grandmother Family/Other Ovarian cancer Paternal aunt Uterine cancer Paternal aunt Mother Stroke Hypertension Family history of thyroid problem Father Heart disease Denies family history of Colon cancer Hyperlipidemia Breast cancer Social History Smoking and tobacco/nicotine status: former use of tobacco/nicotine Physical Exam Const: COMMON NORMALS: no acute distress, patient oriented x3 and healthy appearing HENMT: COMMON NORMALS: normocephalic and atraumatic HEAD & SCALP: normocephalic and atraumatic Neck/C-Spine: COMMON NORMALS: full ROM and supple Chest: COMMONS NORMALS: normal inspection of the chest Resp: COMMON NORMALS: normal respiratory effort Cardio: COMMON NORMALS: regular rate RATE: regular rate GI: COMMON NORMALS: Normal to inspection, nondistended, normoactive bowel sounds present, Soft to palpation, non-tender and no masses PALPATION: Yes Soft to palpation Extremity: COMMON NORMALS: normal to inspection and full ROM Neuro: COMMON NORMALS: patient oriented x3, moves all extremities and no focal motor deficits Psych: COMMON NORMALS: mental status grossly normal, Normal thought process present and cooperative THOUGHT PROCESS: Normal thought process present Skin: COMMON NORMALS: no rashes or lesions noted and no wounds GENERAL SKIN EXAM: no rashes or lesions noted Course Vital Signs: Vital signs: Vital Signs Temperature 98.2 F 09/19/25 13:02 Pulse Rate 98 09/19/25 13:02 Respiratory Rate 18 09/19/25 13:02 Blood Pressure 130/83 09/19/25 13:02 Pulse Oximetry 98 09/19/25 13:02 Oxygen Delivery Me thod Room Air 09/19/25 13:02 MDM - OB/Uterine Contractions Medical Decision Making Patient presents for vaginal bleeding in differential includes ectopic, threatened miscarriage, miscarriage. Ultrasound here showed likely ectopic patient was seen by Dr. Martell down the ER will admit to OB for ops and likely treatment with methotrexate she does not have ruptured ectopic vitals here been stable she has been pain-free Medical Records I reviewed the patient's medical records. Lab Data I reviewed the patient's lab results. 09/19/25 14:07 09/19/25 14:07 Radiology Impressions Obstetrics Ultrasound 09/19/25 13:34 IMPRESSION: 1. Findings suggestive of a right adnexal ectopic . Small pelvic free fluid without sonographic evidence of hemoperitoneum. The findings were verbally communicated by telephone with Dr. SAVAEDRA at 3:00 PM [facility] on 09/19/2025. Laboratory Results WBC 7.53 10^3/uL (3.29-11.43) 09/19/25 14:07 RBC 4.66 10^6/uL (3.85-5.65) 09/19/25 14:07 Hgb 13.50 g/dL (11.27-16.99) 09/19/25 14:07 Hct 41.9 % (36-47) 09/19/25 14:07 MCV 89.9 fl (85-98) 09/19/25 14:07 MCH 29.0 pg (27-33) 09/19/25 14:07 MCHC 32.2 g/dL (30-55) 09/19/25 14:07 RDW 13.5 % (12.1-15.1) 09/19/25 14:07 Plt Count 214 10^3/cmm (157-399) 09/19/25 14:07 MPV 11.8 fL (7.4-10.4) H 09/19/25 14:07 Neut % (Auto) 74.0 % 09/19/25 14:07 Lymph % (Auto) 17.8 % 09/19/25 14:07 [place] % (Auto) 6.6 % 09/19/25 14:07 Eos % (Auto) 0.5 % 09/19/25 14:07 Baso % (Auto) 0.8 % 09/19/25 14:07 Neut # (Auto) 5.57 10^3/uL (1.8-7.7) 09/19/25 14:07 Lymph # (Auto) 1.3 10^3/uL (0.8-4.8) 09/19/25 14:07 [place] # (Auto) 0.5 10^3/uL (0.2-0.9) 09/19/25 14:07 Eos # (Auto) 0.0 10^3/uL (0.0-0.8) 09/19/25 14:07 Baso # (Auto) 0.1 10^3/uL (0.0-0.1) 09/19/25 14:07 Nucleated RBC % (auto) 0 % 09/19/25 14:07 Nucleated RBCs # 0.0 /100WBC 09/19/25 14:07 Ser , Semi-Qnt 644.20 mIU/mL 09/19/25 14:07 Urine Color Yellow (Yellow) 09/19/25 13:46 Urine Appearance Cloudy (CLEAR) A 09/19/25 13:46 Urine pH 6.0 (5-7) 09/19/25 13:46 Ur Specific [place] 1.020 (1.005-1.030) 09/19/25 13:46 Urine Protein Negative (Negative) 09/19/25 13:46 Urine Glucose (UA) Negative (Normal) 09/19/25 13:46 Urine Ketones Trace (Negative) 09/19/25 13:46 Urine Blood 3+ (Negative) A 09/19/25 13:46 Urine Nitrate Negative (Negative) 09/19/25 13:46 Urine Bilirubin Negative (Negative) 09/19/25 13:46 Urine Urobilinogen 1.0 mg/dL (Negative) 09/19/25 13:46 Ur Leukocyte Esterase Negative (Negative) 09/19/25 13:46 Urine RBC 0-2 /hpf (0-2) 09/19/25 13:46 Urine WBC 0-5 /hpf (0-5) 09/19/25 13:46 Ur Squamous Epith Cells 11-20 /hpf (0-5) H 09/19/25 13:46 Amorphous Sediment Not Reportable 09/19/25 13:46 Urine Bacteria 1+ /hpf (NONE) H 09/19/25 13:46 Hyaline Casts 0.81 /lpf 09/19/25 13:46 C.trachomatis RNA (TMA) Cancelled 09/19/25 13:46 Chlamydia/GC Comment Cancelled 09/19/25 13:46 N.gonorrhoeae RNA (TMA) Cancelled 09/19/25 13:46 All radiology interpretation(s) finalized by discharge Discharge Plan Discharge Patient Disposition: Placed in Observation Clinical Impression: Ectopic without intrauterine Coding Level of Care Code ED Fishing Guide for Zoila Marroquin
[2025-09-19 14:13] LABS: Glucose Urine UA Negative (Normal); Nitrate Urine Negative (Negative); Specific Gravity, Urine 1.020 (1.005-1.030)
[2025-09-19 14:18] LABS: Add Urine Microscopic? YES
[2025-09-19 14:22] LABS: Hematocrit 41.9 % (36-47); Hemoglobin 13.50 g/dL (11.27-16.99); Mean Corpuscular HGB Conc 32.2 g/dL (30-55); Mean Corpuscular Hemoglobin 29.0 pg (27-33); Mean Corpuscular Volume 89.9 fl (85-98); Nucleated Red Blood Cells % 0 %; Platelet Count 214 10^3/cmm (157-399); Red Blood Count 4.66 10^6/uL (3.85-5.65); White Blood Count 7.53 10^3/uL (3.29-11.43)
[2025-09-19 15:52] LABS: Albumin Level 4.1 g/dL (3.5-5.2); Alkaline Phosphatase 60 U/L (35-105); Chloride 103 mmol/L (98-107); Potassium 3.9 mmol/L (3.5-5.1); Sodium 137 mmol/L (136-145)
[2025-09-19 16:02] LABS: Alanine Aminotransferase 10 U/L (0-33); Anion Gap 19.0 (5-19); Aspartate Amino Transferase 12 U/L (0-32); Blood Urea Nitrogen 9 mg/dL (6-20); Calcium 8.3 mg/dL (8.5-10.5); Carbon Dioxide 20 mmol/L (22-29); Globulin 2.1 g/dL (1.3-4.6); Glucose 105 mg/dL (65-115); Osmolality Calculated 287 mOsm/kg (285-295); Total Protein 6.0 g/dL (6.6-8.7)
--- NOTE | 2025-09-19 16:42 | PM.OBGYHP ---
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 The bleeding began two to two and a half days ago, prompting evaluation due to concern for recurrent ectopic given her history. The patient's first ectopic was managed medically with an injection and an oral medication, which resulted in heavy bleeding requiring overnight observation but did not require surgery. Her second ectopic occurred in May of last year and resulted in removal of one-Left fallopian tube. Following recovery from these episodes, she was diagnosed with polycystic ovary syndrome (PCOS) and was started on hormone medication aimed at lowering testosterone levels. The patient reports irregular menstrual cycles. Upon learning of the current , she initiated vitamins. She also takes vitamin D supplementation for a known deficiency. Her serum hCG level today is 644. She has two children at home and receives her routine obstetric and gynecologic care locally in [place]. The patient expressed hope to manage this medically to avoid further surgery and preserve her remaining fallopian tube. She has been counseled that mild cramping may occur after the planned injection. PAST MEDICAL HISTORY: - Ectopic , medically managed (year unclear) - Ectopic with tubal removal (May year) - Polycystic ovary syndrome (PCOS) - Irregular menstrual cycles - Vitamin D deficiency MEDICATIONS: - Vitamin D - vitamins SURGICAL HISTORY: - Tubal removal (May) ALLERGIES: No known drug allergies documented FAMILY HISTORY: Not contributory SOCIAL HISTORY: The patient has two children at home. She receives obstetric and gynecologic care in [place]. REVIEW OF SYSTEMS: As in HPI VITAL SIGNS: 130/83, temp 98.2 PHYSICAL EXAMINATION: Vaginal bleeding, no pelvic or abdominal pain LABORATORY DATA: Serum hC mIU/mL Hgb 13.5 US: Uterus: Uterus measures 7.0 x 5.3 x 5.0 cm. Endometrium measures 9 mm in thickness. No evidence of intrauterine . Right ovary/adnexa: Right ovary measures 2.7 x 2.7 x 2.6 cm. Flow is visualized. There is a masslike structure in the right adnexa measuring approximately 11 mm compatible with an ectopic . ASSESSMENT AND PLAN: 1. Early with vaginal bleeding,US with likely ectopic in right adnexa measuring 1cm. Asymptomatic. The patient presents with a positive test followed by two to two and a half days of vaginal bleeding. Given her history of two prior ectopic pregnancies and one remaining fallopian tube, there is significant concern for recurrent ectopic . Current serum hCG is 644 mIU/mL. US with finding of 1cm adnexal mass. Hemodynamically stable and with no pelvic or abdominal pain. - Administer injection today for medical management of presumed ectopic - Goal is to avoid surgery and preserve remaining fallopian tube - STI testing. May administer antibiotics if test is positive for STI positive testing - Follow-up in 48 hours in the office for repeat hCG testing - Transfer to labor and delivery area today for treatment with metotrexate IM if normal LFTs. - Plan for discharge home today if medically managed as planned 2. History of ectopic with prior tubal removal The patient has a significant history of two prior ectopic pregnancies. The first was managed medically without surgery. The second, occurring in May of last year, resulted in removal of one fallopian tube. This history significantly increases her risk for recurrent ectopic and guides the preference for medical therapy when feasible to preserve her remaining tube. 3. Serum hCG 644 mIU/mL This level will be monitored with repeat testing in days 4 and 7 after treatment to assess for appropriate decline following medical management. 4. Polycystic ovary syndrome (PCOS) Diagnosed following recovery from tubal removal and ectopic . Previously placed on hormone medication to lower testosterone levels. Current use of hormone medication not clarified at this time. 5. Irregular menstrual cycles The patient reports longstanding irregular menses, likely related to PCOS. 6. Vitamin D deficiency Known vitamin D deficiency for which the patient is taking vitamin D supplementation. Medications/Allergies Home Medications ?Medication ?Instructions ?Recorded ?Confirmed ?Last Taken ?Type cholecalciferol (vitamin D3) 25 25 mcg PO DAILY 09/19/25 09/19/25 09/19/25 History mcg (1,000 unit) tablet (Vitamin D3) vit no.95-ferrous 1 tab PO DAILY 09/19/25 09/19/25 09/19/25 History fumarate 28 mg-folic acid 800 mcg tablet () Allergies Allergy/AdvReac Type Severity Reaction Status Date / Time adhesive Allergy Mild ALGY-Rash Verified 09/19/25 13:06 PFSH [facility] MICROBIOLOGIST PFSH: Medical History (Updated 09/19/25 @ 19:22 by Nabeel Martell MD) No pertinent past medical history Denies history of: hypercholesterolemia, liver, lung, kidney, thyroid problems, bleeding or clotting disorders, DVT/PE, genital herpes. PCP: None History of ectopic (~2018) Treated with methotrexate Surgical History H/O unilateral salpingectomy left tube removed in 2023 due to ectopic No pertinent past surgical history Family History Grandmother Diabetes Paternal grandmother Family/Other Ovarian cancer Paternal aunt Uterine cancer Paternal aunt Mother Stroke Hypertension Family history of thyroid problem Father Heart disease Denies family history of Colon cancer Hyperlipidemia Breast cancer Social History Smoking and tobacco/nicotine status: former use of tobacco/nicotine History History History 4 Term 2 0 Miscarriages/Ectopic 2 Living Children 2 Vitals/I&O/Wt Last Vital Signs Temp 98.2 F 09/19/25 13:02 Pulse 98 09/19/25 13:02 Resp 18 09/19/25 13:02 BP 130/83 09/19/25 13:02 Pulse Ox 98 09/19/25 13:02 O2 Del Method Room Air 09/19/25 13:02 Weight last 48 hrs Weight 210 lb Data 09/19/25 14:07 09/19/25 14:07 Results Labs OB ([facility]): Obstetrics US Today Blood Type A Positive 04/24/24 Hct, (36-47) 41.9 % Today Hgb, (11.27-16.99) 13.50 g/dL Today Rho(D) Type Rh positive 04/24/24 Plt Count, (157-399) 214 10^3/cmm Today HIV 1&2 Ab & HIV 1 Ag, (Non-Reactiv) Non-reactive 04/25/24 TSH, (0.27-4.20) 1.68 uIU/mL 07/15/25 Free T4, (0.82-1.77) 1.22 ng/dL 07/15/25 Hemoglobin A1c, (4.0-6.0) 5.1 % 07/15/25 FSH 4.4 mIU/mL 06/06/24 Ser , Semi-Qnt 644.20 mIU/mL Today Pap Smear Interpret See note A 07/15/25 Free Testosterone, (0.2-5.0) 6.1 pg/mL H 07/15/25 Prolactin, (4.8-23.3) 12.64 ng/mL 07/15/25 A&P Assessment and plan 1. Right tubal without intrauterine : Plan: DH after metotraxate if stable with fup in clinic with hcgs in 4 days. To return to ER if new symptoms or concerns. PDMP PDMP Reviewed: Not Reviewed Attestations Medical Necessity Statement*: Medical treatment of asymptomatic and stable ectopic Coding Level of Care Code Acute Code for Chg Fwd Diagnoses Right tubal without intrauterine O00.101 Location of ectopic : tubal Laterality: right
[2025-09-19 17:04] VITALS: BP 136/84; PULSE 95; RESP 16; O2SAT 99
[2025-09-19 17:11] LABS: Neisseria Gonorrhea NOT DETECTED (Negative)
[2025-09-19 17:39] VITALS: BMI 34.9
[2025-09-19 17:55] VITALS: BP 124/74; PULSE 74; RESP 16; TEMP 36.9; O2SAT 99
[2025-09-19 19:00] VITALS: BP 135/75; PULSE 81; RESP 16; TEMP 36.9
== END 2025-09-19 19:20 | disposition home or self-care (01) ==
LOC: ER 15:51 → OBGYN 16:44
PROVIDERS: Emergency Provider Emergency Medicine; PCP Family Medicine; Visit Provider Obstetrics & Gynecology
DX: O00.90 Unspecified ectopic pregnancy without intrauterine pregnancy (principal); Z87.891 Personal history of nicotine dependence
CPT/HCPCS: 36415; 76801; 76817; 80053; 81001; 84702; 85025; 87491; 87591; 96372; 99284; J9260

== ENCOUNTER → 2025-09-23 16:41 | Outpatient (BNVA) | payer OTHER, SELFPAY | PROVIDERS: PCP Family Medicine; Visit Provider Obstetrics & Gynecology | DX: O00.101 Right tubal pregnancy without intrauterine pregnancy (principal) | CPT/HCPCS: 84702 ==